=== PATIENT | female | born 1975 | race Two or more races ===

== ENCOUNTER 2020-08-06 10:45 | Outpatient (REF) | payer OTHER, SELFPAY ==
--- NOTE | 2020-08-06 10:54 | EMG_ITS ---
HISTORY OF PRESENT ILLNESS: This is a 44-year-old woman with a 2-year history of numbness and pain in both hands. Prior to that, she has had multiple other complaints of aches and pains in the body and at some point was thought to have fibromyalgia. No list of medications available. PHYSICAL EXAMINATION: On examination, she is alert and oriented with normal intellectual functions. Cranial nerves II through XII are normal. Muscle tone and strength are normal in all 4 extremities. Deep tendon reflexes symmetrical, 2+, plantar response are flexor. No Tinel or Phalen sign. IMPRESSION: Rule out carpal tunnel syndrome. NERVE CONDUCTION EMG STUDY: Normal electrodiagnostic study of both upper extremities with no evidence of carpal tunnel syndrome or nerve entrapment. Normal EMG of the left C5 through T1 innervated muscles. MD CHELSEA Marinelli/DARWIN / [id number]
== END 2020-08-06 10:46 | disposition home or self-care (01) ==
LOC: HO.NEURO 10:45
PROVIDERS: PCP Internal Medicine; Visit Provider Internal Medicine
DX: R20.0 Anesthesia of skin (principal)
CPT/HCPCS: 95860; 95913

== ENCOUNTER 2020-10-07 14:43 | Outpatient (REF) | payer OTHER, SELFPAY ==
--- NOTE | 2020-10-07 16:03 | XR_ITS ---
EXAMINATION: LUMBAR SPINE, CERVICAL SPINE, AND LEFT FOOT. CLINICAL INFORMATION: Pain COMPARISON: None TECHNIQUE: Three-view left foot, 3 view lumbar spine, 2 view cervical spine. FINDINGS: 3 views of the left foot do not demonstrate any evidence of acute fracture or dislocation. Joint spaces are maintained. No erosive changes are appreciated. There is a plantar calcaneal spur. There are 5 rib-bearing lumbar vertebra with partial sacralization of the left side of L5. No acute fracture, spondylolisthesis, or spondylolysis is appreciated. There is some mild disc space narrowing seen L3-S1. There is increased sclerosis consistent with facet arthropathy involving the right L5-S1 facet joint. AP and lateral views of the cervical spine do not demonstrate any evidence of acute fracture. No abnormal prevertebral soft tissue swelling is seen. There is some anterior spurring seen at the C4-C5 level. Disc spaces are maintained. XR/XR foot LT min 3V IMPRESSION: Left calcaneal spur. Partial sacralization left side of L5 without evidence of acute fracture, spondylolisthesis, or spondylolysis. Mild degenerative change at the C4-C5 level.
--- NOTE | 2020-10-07 16:03 | XR_ITS ---
EXAMINATION: LUMBAR SPINE, CERVICAL SPINE, AND LEFT FOOT. CLINICAL INFORMATION: Pain COMPARISON: None TECHNIQUE: Three-view left foot, 3 view lumbar spine, 2 view cervical spine. FINDINGS: 3 views of the left foot do not demonstrate any evidence of acute fracture or dislocation. Joint spaces are maintained. No erosive changes are appreciated. There is a plantar calcaneal spur. There are 5 rib-bearing lumbar vertebra with partial sacralization of the left side of L5. No acute fracture, spondylolisthesis, or spondylolysis is appreciated. There is some mild disc space narrowing seen L3-S1. There is increased sclerosis consistent with facet arthropathy involving the right L5-S1 facet joint. AP and lateral views of the cervical spine do not demonstrate any evidence of acute fracture. No abnormal prevertebral soft tissue swelling is seen. There is some anterior spurring seen at the C4-C5 level. Disc spaces are maintained. XR/XR lumbar spine 2-3V IMPRESSION: Left calcaneal spur. Partial sacralization left side of L5 without evidence of acute fracture, spondylolisthesis, or spondylolysis. Mild degenerative change at the C4-C5 level.
--- NOTE | 2020-10-07 16:03 | XR_ITS ---
EXAMINATION: LUMBAR SPINE, CERVICAL SPINE, AND LEFT FOOT. CLINICAL INFORMATION: Pain COMPARISON: None TECHNIQUE: Three-view left foot, 3 view lumbar spine, 2 view cervical spine. FINDINGS: 3 views of the left foot do not demonstrate any evidence of acute fracture or dislocation. Joint spaces are maintained. No erosive changes are appreciated. There is a plantar calcaneal spur. There are 5 rib-bearing lumbar vertebra with partial sacralization of the left side of L5. No acute fracture, spondylolisthesis, or spondylolysis is appreciated. There is some mild disc space narrowing seen L3-S1. There is increased sclerosis consistent with facet arthropathy involving the right L5-S1 facet joint. AP and lateral views of the cervical spine do not demonstrate any evidence of acute fracture. No abnormal prevertebral soft tissue swelling is seen. There is some anterior spurring seen at the C4-C5 level. Disc spaces are maintained. XR/XR cervical spine 2V IMPRESSION: Left calcaneal spur. Partial sacralization left side of L5 without evidence of acute fracture, spondylolisthesis, or spondylolysis. Mild degenerative change at the C4-C5 level.
[2020-10-07 16:49] LABS: MANUAL DIFF FLAG NO
[2020-10-07 16:54] LABS: Basophils Percent Auto 0.3 % (0-2); Eosinophils Absolute Auto 0.1 X10*3/uL (0.0-0.4); Eosinophils Percent Auto 0.7 % (0-4); Hematocrit 37.4 % (37-47); Hemoglobin 13.2 g/dl (12.0-16.0); Imm Gran Abs Auto 0.02 X10*3/uL (0.00-0.03); Imm Gran Pct Auto 0.2 % (0.0-0.4); Lymphocytes Absolute Auto 3.3 X10*3/uL (1.2-4.9); Mean Corpuscular HGB Conc 35.3 g/dl (31.0-35.0); Mean Corpuscular Hemoglobin 31.3 pg (27.0-33.0); Mean Corpuscular Volume 88.6 fL (80-98); Mean Platelet Volume 9.3 fL (9.4-12.3); Monocytes Absolute Auto 0.4 X10*3/uL (0.1-1.2); Monocytes Percent Auto 4.4 % (2-11); Neutrophils Absolute Auto 5.6 X10*3/uL (2.0-8.3); Neutrophils Percent Auto 59.4 % (45-73); Platelet Count 346 X10*3/uL (160-400); Red Blood Count 4.22 X10*6/uL (4.20-5.50); Red Cell Distribution Width 11.6 % (11.0-16.0); White Blood Count 9.5 X10*3/uL (4.8-10.8)
[2020-10-07 17:53] LABS: Erythrocyte Sedimentation Rate 8 MM/HR (0-20)
[2020-10-07 17:59] LABS: Thyroid Stimulating Hormone 0.82 uIU/mL (0.32-4.0)
[2020-10-07 19:09] LABS: Alanine Aminotransferase 15 U/L (0-31); Albumin Level 4.5 g/dL (3.5-5.0); Alkaline Phosphatase 61 U/L (39-117); Anion Gap 14 (12-20); Aspartate Amino Transferase 18 U/L (5-31); Bilirubin Total 0.3 mg/dL (0.0-1.0); Blood Urea Nitrogen 10 mg/dL (9-16); C Reactive Protein 0.06 mg/dL (< or = 0.50); Calcium 9.3 mg/dL (8.4-10.2); Carbon Dioxide 26 mmol/L (22-29); Chloride 103 mmol/L (96-108); Estimated Glomerular Filt Rate > 60; Glucose Random 74 mg/dL (60-115); Rheumatoid Factor < 15.0 IU/mL (<15.0); Sodium 139 mmol/L (135-145); Total Protein 7.2 g/dL (6.5-8.0)
[2020-10-08 13:07] LABS: Anti Nuclear Antibody Screen NEGATIVE (NEGATIVE)
[2020-10-08 13:33] LABS: Antibody to SS-A Antigen <1.0 NEG AI (<1.0 NEG); Antibody to SS-B Antigen <1.0 NEG AI (<1.0 NEG)
[2020-10-08 15:32] LABS: Cyclic Citrullinated Peptide <16 UNITS
[2020-10-13 14:27] LABS: Vitamin D 25-OH, D2 <4 ng/mL; Vitamin D 25-OH, D3 23 ng/mL; Vitamin D 25-OH, Total 23 ng/mL (30-100)
== END 2020-10-07 14:44 | disposition home or self-care (01) ==
LOC: HO.LAB 14:43
PROVIDERS: PCP Internal Medicine; Visit Provider Student in an Organized Health Care Education/Training Program
DX: M25.50 Pain in unspecified joint (principal)
CPT/HCPCS: 36415; 72040; 72100; 73630; 80053; 82306; 84443; 85025; 85652; 86038; 86039; 86140; 86200; 86235; 86431; 99202

== ENCOUNTER 2020-11-05 07:00 | Outpatient (REF) | payer OTHER, SELFPAY ==
[2020-11-05 07:44] LABS: MANUAL DIFF FLAG NO
[2020-11-05 07:57] LABS: Basophils Percent Auto 0.5 % (0-2); Eosinophils Absolute Auto 0.1 X10*3/uL (0.0-0.4); Eosinophils Percent Auto 1.2 % (0-4); Hematocrit 39.2 % (37-47); Imm Gran Abs Auto 0.02 X10*3/uL (0.00-0.03); Imm Gran Pct Auto 0.3 % (0.0-0.4); Lymphocytes Absolute Auto 2.7 X10*3/uL (1.2-4.9); Lymphocytes Percent Auto 35.5 % (20-40); Mean Corpuscular HGB Conc 33.2 g/dl (31.0-35.0); Mean Corpuscular Hemoglobin 29.9 pg (27.0-33.0); Mean Corpuscular Volume 90.1 fL (80-98); Mean Platelet Volume 9.1 fL (9.4-12.3); Monocytes Absolute Auto 0.4 X10*3/uL (0.1-1.2); Monocytes Percent Auto 5.7 % (2-11); Neutrophils Absolute Auto 4.4 X10*3/uL (2.0-8.3); Neutrophils Percent Auto 56.8 % (45-73); Platelet Count 327 X10*3/uL (160-400); Red Blood Count 4.35 X10*6/uL (4.20-5.50); Red Cell Distribution Width 11.4 % (11.0-16.0); White Blood Count 7.7 X10*3/uL (4.8-10.8)
[2020-11-05 08:19] LABS: Alanine Aminotransferase 20 U/L (0-31); Alkaline Phosphatase 57 U/L (39-117); Anion Gap 12 (12-20); Aspartate Amino Transferase 19 U/L (5-31); Bilirubin Total 0.4 mg/dL (0.0-1.0); Blood Urea Nitrogen 12 mg/dL (9-16); Calcium 9.3 mg/dL (8.4-10.2); Carbon Dioxide 26 mmol/L (22-29); Chloride 105 mmol/L (96-108); Cholesterol 202 mg/dL; Estimated Glomerular Filt Rate > 60; Glucose Fasting 99 mg/dL (60-99); HDL Cholesterol 59 mg/dL; LDL Cholesterol Calculated 125 mg/dl; Potassium 4.5 mmol/l (3.3-5.1); Sodium 138 mmol/L (135-145); Total Protein 6.5 g/dL (6.5-8.0); Triglycerides 90 mg/dL
[2020-11-05 08:38] LABS: TSH reflex Free T4 0.64 mIU/mL (0.32-4.0); Vitamin D 25-OH Total 17.7 ng/mL (>30)
[2020-11-05 09:10] LABS: Erythrocyte Sedimentation Rate 7 MM/HR (0-20)
[2020-11-05 09:14] LABS: Rheumatoid Factor < 15.0 IU/mL (<15.0)
[2020-11-06 06:43] LABS: Lyme Abs Screen <0.90 index
[2020-11-06 14:12] LABS: Anti Nuclear Antibody Screen NEGATIVE (NEGATIVE)
[2020-11-06 14:32] LABS: SM/Ribonucleoprotein Ab <1.0 NEG AI (<1.0 NEG); Smith Protein <1.0 NEG AI (<1.0 NEG)
[2020-11-07 14:32] LABS: Cyclic Citrullinated Peptide <16 UNITS
[2020-11-10 18:07] LABS: Strep DNASE B Antibody <95 U/mL (<301)
== END 2020-11-05 07:01 | disposition home or self-care (01) ==
LOC: HO.LAB 07:00
PROVIDERS: Visit Provider Internal Medicine
DX: M25.50 Pain in unspecified joint (principal); L65.9 Nonscarring hair loss, unspecified; Z79.899 Other long term (current) drug therapy
CPT/HCPCS: 36415; 80053; 80061; 82306; 84443; 85025; 85652; 86038; 86039; 86200; 86215; 86235; 86431; 86618

== ENCOUNTER 2020-11-12 08:07 | Outpatient (REF) | payer OTHER, SELFPAY ==
--- NOTE | 2020-11-12 08:11 | MM_ITS ---
EXAMINATION: MM SCREENING DIGITAL BREAST TOMOSYNTHESIS, BILATERAL CLINICAL INFORMATION: Screening. Asymptomatic. Prior reduction mammoplasty 2009. The lifetime risk of breast cancer based on the Tyrer-Cuzick Model is 7%. COMPARISON: Outside mammography: 01/16/2018, 01/12/2017 ([facility]). TECHNIQUE: Digital breast tomosynthesis is performed in both the craniocaudal and mediolateral oblique views along with computer-aided detection (CAD). Synthesized 2D images are generated from the tomosynthesis. FINDINGS: There are scattered areas of fibroglandular density (ACR BI-RADS breast composition Category b). Parenchymal pattern is similar to prior studies. There are scattered asymmetries consistent with reduction mammoplasty. No developing density or interval mass, architectural abnormality, or abnormal calcifications. No significant changes from prior outside exams. MM/MM tomosynthesis screening BI IMPRESSION: No mammographic evidence of malignancy. ASSESSMENT: BI-RADS 2: Benign RECOMMENDATION: Routine annual mammography screening. This patient's information was entered into a reminder system with a target due date for their next mammogram.
== END 2020-11-12 08:08 | disposition home or self-care (01) ==
LOC: HO.MAMMO 08:07
PROVIDERS: PCP Internal Medicine; Visit Provider Internal Medicine
DX: Z12.31 Encounter for screening mammogram for malignant neoplasm of breast (principal)
CPT/HCPCS: 77063; 77067

== ENCOUNTER 2022-01-13 11:37 | Emergency (ER) | payer OTHER, SELFPAY ==
--- NOTE | ~2022-01-13 | XR_ITS ---
EXAMINATION: XR SHOULDER, RIGHT CLINICAL INFORMATION: Right shoulder pain. No trauma COMPARISON: None TECHNIQUE: AP external rotation, Grashey, scapular Y, and axillary views of the right shoulder. FINDINGS: There is mild reduction in the right AC joint space with inferior spurring. The glenohumeral joint space is normal. No bony erosive changes, acute fracture or dislocation. The soft tissues are normal. XR/XR shoulder RT min 2V IMPRESSION: Mild degenerative changes right AC joint. No acute fracture or dislocation seen
[2022-01-13 11:56] VITALS: BP 159/74; PULSE 73; RESP 17; TEMP 36.3; O2SAT 98; BMI 26.1
--- NOTE | 2022-01-13 12:11 | ED_ITS ---
HPI - Extremity Problem General Chief complaint: Extremity Problem Stated complaint: pain in R arm Time Seen by Provider: 01/13/22 12:05 Source: patient Mode of arrival: ambulatory Limitations: no limitations History of Present Illness HPI Narrative: 46-year-old female with history of polyarthralgia with negative w/u by rheum in past here with reports of acute on chronic right shoulder pain over the last few days unrelieved with home naproxen. Patient is right-handed. 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 She denies any injury or trauma. She denies any radiation of pain. No associated numbness or tingling. She has a history of getting cortisone injections to the shoulder in the past which was helpful. However, she is transitioning to a new primary care doctor and cannot get in to be seen by them until May. Related Data Home Medications Medication Instructions Recorded Confirmed amitriptyline 25 mg tablet 25 mg PO BEDTIME 10/07/20 11/05/20 naproxen sodium 220 mg tablet 220 mg PO BID PRN 10/07/20 11/05/20 (Aleve) Previous Rx's Medication Instructions Recorded ergocalciferol (vitamin D2) 1,250 1,250 mcg PO QWEEK 30 Days #5 cap 11/05/20 mcg (50,000 unit) capsule cyclobenzaprine 10 mg tablet 10 mg PO TID PRN #10 tab 01/13/22 naproxen 500 mg tablet 500 mg PO BID PRN #20 tab 01/13/22 Allergies Allergy/AdvReac Type Severity Reaction Status Date / Time No Known Allergies Allergy Verified 11/05/20 13:44 Review of Systems Review of Systems: Yes all other systems are reviewed and are negative Constitutional: Constitutional: Reports no additional constitutional complaints, Denies body ache(s), Denies chills, Denies fever(s), Denies headache(s) and Denies weakness Eyes: Eyes: Reports no additional eye complaints and Denies change in vision ENT: Reports system reviewed and no additional complaints, except as documented, Denies dizziness, Denies headache(s), Denies nasal congestion, Denies nasal discharge and Denies neck pain Cardiovascular: Cardiovascular: Reports no additional cardiovascular complaints, Denies chest pain, Denies leg edema and Denies dyspnea Respiratory: Respiratory: Reports no additional respiratory complaints, Denies cough and Denies dyspnea Gastrointestinal: Gastrointestinal: Reports no additional gastrointestinal complaints, Denies abdominal pain, Denies diarrhea, Denies nausea and Denies vomiting Genitourinary: Genitourinary: Reports no additional female genitourinary complaints and Denies urinary incontinence Musculoskeletal: Musculoskeletal: Reports no additional musculoskeletal complaints, Denies back pain, Reports arthralgias, Denies joint swelling, Denies neck pain, Denies numbness and Denies tingling Integumentary/Breasts: Skin/Breast: Reports system reviewed and no additional complaints, except as docu and Denies rash Neurologic: Reports system reviewed and no additional complaints, except as documented, Denies Abnormal speech present, Denies dizziness, Denies headache(s), Denies numbness, Denies tingling and Denies weakness PMFSH Past Medical History Attestation statement: The following information was validated with the patient. Source: old records reviewed and nursing notes reviewed Medical History Arthritis Hair loss Hypovitaminosis D Migraines Surgical History History of section Hx of breast reduction, elective Family History Family History Father Stroke Mother Anxiety Family/Other FH: mental illness Social History Social History Alcohol intake: current Alcohol intake frequency: holidays/special occasions only Alcohol type: beer Substance Use Type: Marijuana Advance Directives: No Advance Directives Information Provided: No Physical Exam Vital Signs: Vital Signs: Last Vital Signs Temp 97.4 F 01/13/22 11:56 Pulse 73 01/13/22 11:56 Resp 17 01/13/22 11:56 BP 159/74 H 01/13/22 11:56 Pulse Ox 98 01/13/22 11:56 BMI result Body Mass Index 26.1 Const: General: cooperative, healthy appearing, comfortable and no acute distress Orientation/consciousness: patient oriented x3 Limitations: no limitations HEENT: Head: Yes normal to inspection Ears: hearing grossly normal bilaterally General nose exam: Normal external nose present Face and sinus: Yes normal facial exam Mouth: Normal oral and palatal mucosa present Throat: Yes posterior oropharynx normal Eyes: General: appearance normal, both eyes and all related structures Pupils: Equal, round and reactive pupils present Neck: Neck: Yes normal visual inspection Chest: Chest palpation & inspection: normal inspection of the chest Resp: Effort & Inspection: normal respiratory effort Auscultation: clear to auscultation bilaterally Cardio: Rate: regular rate Rhythm: regular rhythm Peripheral pulses: Peripheral pulses 2+ throughout GI: Inspection: Yes normal to inspection Palpation (GI): Soft to palpation and nontender Auscultation: normal bowel sounds Back/Spine/Pelvis: Thoracic/Lumbar Spine: thoracic and lumbar spine normal to inspection Skin: General skin exam: no rashes or lesions noted Neuro: General: patient oriented x3, no focal motor deficits and normal sensation to monofilament Cranial nerves: Yes Equal, round and reactive pupils present Cognition (Neuro): normal cognition Speech: No Abnormal speech present Gait exam (Neuro): Normal gait present Motor exam (neuro): 5/5 motor strength present throughout Extrem: Other: Tenderness to the anterior and proximal humerus which is worsened with abduction of the extremity. Normal sensation. Normal distal pulse. General: Yes normal to inspection Course Course Course Narrative: [age] year old female here with acute on chronic right shoulder pain unrelieved with home naproxen. Will obtain x-rays, provide analgesia 1300- X-rays show Mild degenerative changes right AC joint. No acute fracture or dislocation seen Recommend patient continue NSAID, will add low dose muscle relaxant. Patient seeking cortisone injection as this has been helpful in the past. Explained that we do not do this in the emergency department. Will provide referral to Orthopedics although patient may require a prior auth from her primary care. Reviewed worrisome signs and symptoms of when to return to the emergency department. Comfortable discharge home. MDM - Extremity (Nontraumatic) MDM Narrative Medical decision making narrative: Arthritis, sprain, strain Medical Records Attestation: I reviewed the patient's medical records. Lab Data Attestation: I reviewed the patient's lab results. Imaging Data shoulder xray: Attestation: I personally reviewed and interpreted this imaging study as follows: Radiologist's impression: [address] [address] XRay Report Signed Patient: Lance Acosta MR#: [id number] : 1975 Acct:[id number] Age/Sex: 46 / F ADM Date: 01/13/22 Loc: HO.ED Attending Dr: Ordering Physician: Alivia Caal NP Date of Service: 01/13/22 Procedure(s): XR shoulder RT min 2V Accession Number(s): [id number] cc: Alivia Caal NP~ EXAMINATION: XR SHOULDER, RIGHT CLINICAL INFORMATION: Right shoulder pain. No trauma? COMPARISON: None? TECHNIQUE: AP external rotation, Grashey, scapular Y, and axillary views of the right shoulder. FINDINGS: There is mild reduction in the right AC joint space with inferior spurring. The glenohumeral joint space is normal. No bony erosive changes, acute fracture or dislocation. The soft tissues are normal. XR/XR shoulder RT min 2V IMPRESSION: Mild degenerative changes right AC joint. No acute fracture or dislocation seen Discharge Plan Discharge Clinical Impression: Osteoarthritis Patient Disposition: Home, Self-Care Instructions: Osteoarthritis (DC) Additional Instructions: Heat or ice Gentle stretching Continue naproxen Prescriptions: New cyclobenzaprine 10 mg tablet 10 mg PO TID PRN (Reason: muscle spasm) Qty: 10 0RF naproxen 500 mg tablet 500 mg PO BID PRN (Reason: pain) Qty: 20 0RF No Action ergocalciferol (vitamin D2) 1,250 mcg (50,000 unit) capsule 1,250 mcg PO QWEEK 30 Days Qty: 5 3RF amitriptyline 25 mg tablet 25 mg PO BEDTIME 0RF naproxen sodium [Aleve] 220 mg tablet 220 mg PO BID PRN0RF Referrals: Patti Toscano MD [Physician] - 1 week Stand Alone Forms: Work/School Release
[2022-01-13] MEDS: Ketorolac Tromethamine 60 MG/2 ML VIAL IM (12:37)
== END 2022-01-13 13:15 | disposition home or self-care (01) ==
PROVIDERS: Emergency Provider Emergency Medicine; PCP Internal Medicine
DX: M19.011 Primary osteoarthritis, right shoulder (principal); M25.511 Pain in right shoulder; Z79.899 Other long term (current) drug therapy
CPT/HCPCS: 73030; 96372; 99284; J1885

== ENCOUNTER 2022-07-17 09:09 | Emergency (ER) | payer OTHER, SELFPAY ==
[2022-07-17 10:07] VITALS: BP 133/60; PULSE 83; RESP 16; TEMP 36.5; O2SAT 99; BMI 25.6
--- NOTE | 2022-07-17 10:10 | ED_ITS ---
HPI - Back Pain/Injury General Chief Complaint: Back Pain/Injury Stated Complaint: back pain Time Seen by Provider: 07/17/22 10:10 Source: patient Mode of arrival: ambulatory Limitations: no limitations History of Present Illness HPI Narrative: 46 yo female with history of polyarthralgia & sciatica who presents to the ER for evaluation of lower back pain that radiates down her LLE that started 3 days ago. She reports history of similar episodes. She states when this usually flares up she takes Naprosyn and Flexeril. The Naprosyn has been upsetting her stomach and she has not been able to take it. She has no Flexeril at home. 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 She reports the back pain is in her lower back, radiates into her left buttock, down her left leg. It is worse with ambulation and palpation of her back. She denies any urinary incontinence, bowel incontinence, saddle paresthesias, no lower extremity weakness, numbness, tingling. She does report severe pain. MD elicited complaint: back pain Pertinent past history: prior back pain Onset (ago): day(s) (3) Timing: progressively worsening Severity: severe Similar Symptoms Previously: Yes Quality: sharp, aching and spasming Location: right lower back and left lower back Radiation: buttocks and left leg below the knee Exacerbating factors: movement and walking Relieving factors: immobilization and medication Context: unknown Associated symptoms: denies other symptoms Related Data Home Medications Medication Instructions Recorded Confirmed amitriptyline 25 mg tablet 25 mg PO BEDTIME 10/07/20 11/05/20 naproxen sodium 220 mg tablet 220 mg PO BID PRN 10/07/20 11/05/20 (Aleve) Previous Rx's Medication Instructions Recorded ergocalciferol (vitamin D2) 1,250 1,250 mcg PO QWEEK 30 days #5 caps 11/05/20 mcg (50,000 unit) capsule cyclobenzaprine 10 mg tablet 10 mg PO TID PRN muscle spasm #10 01/13/22 tabs naproxen 500 mg tablet 500 mg PO BID PRN pain #20 tabs 01/13/22 cyclobenzaprine 10 mg tablet 10 mg PO TID PRN muscle spasm #14 07/17/22 tabs ibuprofen 600 mg tablet 600 mg PO Q8H PRN pain #14 tabs 07/17/22 prednisone 20 mg tablet 40 mg PO DAILY #10 tabs 07/17/22 Allergies Allergy/AdvReac Type Severity Reaction Status Date / Time No Known Allergies Allergy Verified 11/05/20 13:44 Review of Systems Review of Systems: Constitutional: No Fever, No Chills Cardiovascular: No Chest Pain, No SOB Respiratory: No Cough, No Sputum Gastrointestinal: No Nausea, No Vomiting, No Diarrhea, No abdominal Pain Genitourinary: No Dysuria, No Urinary Frequency, No Hematuria, No urinary i ncontinence Musculoskeletal: + joint pain, +Myalgias Skin: No Skin Lesions, No rash Neuro: No Weakness, No Numbness, No Dizziness, No Headache Psych: No Anxiety/Panic, No Depression Heme/Lymph: No Bruising, No Lymphadenopathy PMFSH Past Medical History Medical History Arthritis Hair loss Hypovitaminosis D Migraines Surgical History History of section Hx of breast reduction, elective Family History Family History Father Stroke Mother Anxiety Family/Other FH: mental illness Social History Social History Alcohol intake: current Alcohol intake frequency: holidays/special occasions only Alcohol type: beer Substance Use Type: Marijuana Advance Directives: No Advance Directives Information Provided: No Physical Exam Vital Signs: Vital Signs: Last Vital Signs Temp 97.7 F 07/17/22 10:07 Pulse 83 07/17/22 10:07 Resp 16 07/17/22 10:07 BP 133/60 07/17/22 10:07 Pulse Ox 99 07/17/22 10:07 O2 Del Method 07/17/22 10:07 BMI result Body Mass Index 25.6 Appearance: Alert. Oriented X3. No acute distress. HEENT: normal inspection CVS: Normal heart rate and rhythm. Pulses normal. Respiratory: No respiratory distress. Skin: Skin warm and dry. Normal skin color. Normal skin turgor. No rashes. Back: tenderness along the entire lumbar area, more on the left. +straight leg raise test. Extremities: normal inspection x4 Neuro: Oriented X 3. No motor deficit. No sensory deficit. ambulates with steady gait, slight limp on the left Course Course Course Narrative: 46-year-old female with history of polyarthralgia and sciatica presents to the ER for evaluation of sciatica for the last 3 days. She denies any red flag symptoms of LBP. She reports good effect with Flexeril. She is unable to tolerate Naprosyn due to GI upset, will give a trial of ibuprofen, advised to take with food. Will give a dose of IM Toradol here. Will also start her on prednisone given she is not diabetic and she has also responded well to this in the past. She will follow-up with her primary care doctor next week. Work note provided per request. Stable for DC home. Discharge Plan Discharge Clinical Impression: Sciatica Patient Disposition: Home, Self-Care Instructions: Sciatica (ED) Additional Instructions: No bending, lifting or twisting. Use ice several times per day for 20 minutes at a time for the next 48 hours and then change to heat. Take medications as prescribed to help with pain and discomfort. Follow up with your Primary Care Doctor this week. If your pain worsens, if you develop new numbness, tingling, weakness, loss of function or incontinence call 911 or come back to the ER right away for evaluation. Prescriptions: New cyclobenzaprine 10 mg tablet 10 mg PO TID PRN (Reason: muscle spasm) Qty: 14 0RF ibuprofen 600 mg tablet 600 mg PO Q8H PRN (Reason: pain) Qty: 14 0RF prednisone 20 mg tablet 40 mg PO DAILY Qty: 10 0RF No Action cyclobenzaprine 10 mg tablet 10 mg PO TID PRN (Reason: muscle spasm) Qty: 10 0RF naproxen 500 mg tablet 500 mg PO BID PRN (Reason: pain) Qty: 20 0RF ergocalciferol (vitamin D2) 1,250 mcg (50,000 unit) capsule 1,250 mcg PO QWEEK 30 Days Qty: 5 3RF amitriptyline 25 mg tablet 25 mg PO BEDTIME naproxen sodium [Aleve] 220 mg tablet 220 mg PO BID PRN Referrals: Suki Teresa MD [Primary Care Provider] - (sciatica) Stand Alone Forms: Work/School Release Interventions: ED Discharge Assessment Last Done: 07/17/22 10:57
[2022-07-17] MEDS: Ketorolac Tromethamine 30 MG/ML VIAL IM (10:33)
[2022-07-17] MEDS: Acetaminophen 325 MG TABLET 975 MG PO (10:33)
== END 2022-07-17 10:58 | disposition home or self-care (01) ==
PROVIDERS: Emergency Provider Emergency Medicine; PCP Internal Medicine
DX: M54.42 Lumbago with sciatica, left side (principal)
CPT/HCPCS: 96372; 99283; 99284; J1885

== ENCOUNTER 2023-05-14 11:29 | Emergency (ER) | payer OTHER, SELFPAY ==
--- NOTE | ~2023-05-14 | US_ITS ---
EXAMINATION: US VENOUS ULTRASOUND WITH DOPPLER LOWER EXTREMITY, LEFT CLINICAL INFORMATION: Left calf pain COMPARISON: None available. TECHNIQUE: Ultrasound of the deep veins is performed from the hip to the calf with compression sonography and color and pulse Doppler assessment. Spectral analysis with color-flow imaging is performed. FINDINGS: There is normal venous compression and respiratory variation and augmented flow. The visualized common femoral vein, superficial femoral vein, profunda femoral vein, popliteal vein, and the trifurcation region shows no evidence of deep venous thrombosis. There is no significant popliteal fossa cyst. If the patient's symptoms persist, followup ultrasound in 5 days 7 days might be of value to exclude proximal propagation from a non-visualized calf vein. US/US venous duplex LE LT IMPRESSION: No DVT demonstrated in the left lower extremity.
--- NOTE | ~2023-05-14 | XR_ITS ---
EXAMINATION: XR KNEE, LEFT CLINICAL INFORMATION: Pain COMPARISON: None available. TECHNIQUE: Four views of the left knee. FINDINGS: No fracture or joint effusion. Alignment is anatomic. Joint spaces are maintained. No abnormal soft tissue calcification. XR/XR knee LT 3V IMPRESSION: Normal left knee.
[2023-05-14 11:54] VITALS: BP 129/69; PULSE 79; RESP 12; TEMP 37.1; O2SAT 99; BMI 27.0
--- NOTE | 2023-05-14 11:54 | ED_ITS ---
HPI - General Adult General Chief complaint: General Medical Stated complaint: l knee pain Time Seen by Provider: 05/14/23 11:39 Source: patient Mode of arrival: ambulatory Limitations: no limitations History of Present Illness HPI narrative: Patient is a 47-year-old female with history of arthritis, migraines presenting emergency department with 3 days of left knee pain which is now radiating down anterior left leg. She also complains of left calf pain, worse with ambulation. 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 Has taken muscle relaxers at home with little relief. Denies any numbness or tingling to her lower extremity. Denies any recent falls or other trauma. Denies fevers. Denies chest pain or shortness of breath. Denies personal or family history of blood clots. MD complaint: Left leg pain Onset (ago): day(s) Location: lower extremity Radiation: distal Severity scale (1-10): 7 Quality: burning Pain Consistency: constant Relieving factors: rest Exacerbating factors: movement Associated symptoms: denies other symptoms Treatments prior to arrival: other (Muscle relaxers) Related Data Home Medications Medication Instructions Recorded Confirmed amitriptyline 25 mg tablet 25 mg PO BEDTIME 10/07/20 11/05/20 naproxen sodium 220 mg tablet 220 mg PO BID PRN 10/07/20 11/05/20 (Aleve) Previous Rx's Medication Instructions Recorded ergocalciferol (vitamin D2) 1,250 1,250 mcg PO QWEEK 30 days #5 caps 11/05/20 mcg (50,000 unit) capsule cyclobenzaprine 10 mg tablet 10 mg PO TID PRN muscle spasm #10 01/13/22 tabs naproxen 500 mg tablet 500 mg PO BID PRN pain #20 tabs 01/13/22 cyclobenzaprine 10 mg tablet 10 mg PO TID PRN muscle spasm #14 07/17/22 tabs ibuprofen 600 mg tablet 600 mg PO Q8H PRN pain #14 tabs 07/17/22 prednisone 20 mg tablet 40 mg PO DAILY #10 tabs 07/17/22 ibuprofen 600 mg tablet 600 mg PO Q8H PRN pain #14 tabs 05/14/23 lidocaine 5 % topical patch 1 patch topical DAILY #15 ea 05/14/23 Allergies Allergy/AdvReac Type Severity Reaction Status Date / Time No Known Allergies Allergy Verified 11/05/20 13:44 Review of Systems Review of Systems: As per HPI. Yes all other systems are reviewed and are negative Constitutional: Constitutional: Reports as per HPI [facility] Past Medical History Medical History Arthritis Hair loss Hypovitaminosis D Migraines Surgical History History of section Hx of breast reduction, elective Family History Family History Father Stroke Mother Anxiety Family/Other FH: mental illness Social History Social History Alcohol intake: current Alcohol intake frequency: holidays/special occasions only Alcohol type: beer Smoked in Last 30 Days: No Use of substances other than those prescribed or required for medical reasons: Yes Substance Use Type: Marijuana Substance Use Frequency: Chronic Longstanding Last Used Substance: Just Prior to Admission Advance Directives: No Advance Directives Information Provided: Yes Patient : No Physical Exam ED Vital Signs: Vital Signs - 24 hr 05/14/23 11:54 Temperature 98.8 F Pulse Rate 79 Respiratory Rate 12 Blood Pressure 129/69 Pulse Oximetry 99 Oxygen Delivery Method Room Air BMI result Body Mass Index 27.0 Vital signs have been reviewed and appear to be correct. Blood pressure normal. Heart rate normal. Respiratory rate normal. Temperature normal. Oxygen saturation normal. Const General: cooperative, healthy appearing and no acute distress Orientation/consciousness: oriented to person, oriented to place, oriented to time and patient oriented x3 Limitations: no limitations [facility] Head: Yes normocephalic and Yes atraumatic Ears: external ears normal General nose exam: Normal external nose present Face and sinus: Yes face symmetric Mouth: oropharynx normal and moist mucous membranes Throat: Yes uvula midline Eyes Pupils: Equal, round and reactive pupils present Neck Neck: Yes normal visual inspection and Yes supple Resp Effort & Inspection: normal respiratory effort and able to speak in complete sentences Auscultation: clear to auscultation bilaterally Cardio Rate: regular rate Rhythm: regular rhythm Heart sounds: S1 normal heart sound present and S2 normal heart sound present GI Palpation (GI): Soft to palpation and nontender Auscultation: normoactive bowel sounds General: Yes no CVA tenderness Back/Spine/Pelvis Back: no CVA tenderness Skin General skin exam: elasticity normal and turgor normal Neuro General: oriented to person, oriented to place, oriented to time, patient oriented x3, moves all extremities, no focal motor deficits and CN's II-XI intact bilaterally Cranial nerves: Yes Equal, round and reactive pupils present Cognition (Neuro): normal cognition Extrem General: Yes full ROM, Yes no pedal edema and Yes no calf tenderness Left lower extremity: normal to inspection, full ROM, knee Details: normal to inspection, tenderness Location: of the popliteal fossa and of the infrapatellar area and normal ROM; no swelling, lower leg Details: normal to inspection and tenderness Location: of the posterior calf; no erythema and no localized swelling and foot Details: normal capillary refill and vascular exam Details: dorsalis pedis pulse present and posterior tibial pulse present Psych Mental Status: mental status grossly normal Affect: normal affect Thought process: Normal thought process present Medications Administered Discontinued Medications Generic Name Dose Route Start Last Admin Trade Name Bernardoq PRN Reason Stop Dose Admin Ketorolac Tromethamine 30 mg 05/14/23 11:57 05/14/23 12:09 Ketorolac Tromethamine 30 Mg/Ml Vial IM 05/14/23 11:58 30 mg ONCE ONE Administration Medical Decision Making Medical Decision Making [facility] Narrative: Patient is a 47-year-old female with history of arthritis, migraines presenting emergency department with 3 days of left knee pain which is now radiating down left leg. On exam patient is awake, A+Ox3, VS WNL, afebrile, normal neurological exam without focal deficits, full ROM to left knee, no swelling, crepitus, erythema, warmth or ecchymosis, mild tenderness to left anterior lower leg, 2+ DP and PT pulses, DTRs2+ throughout, left calf tenderness. Given reported symptoms and physical exam findings, initial differential includes DVT, knee arthritis, muscle strain. Less likely fracture as patient denies fall or other trauma. X-ray notable for no fracture or degenerative changes to left knee. U/S negative for DVT. My interpretation is in agreement with the radiologist's interpretation. Feel patient is stable for discharge home with ortho follow up. Will prescribe 600mg ibuprofen as well as lidocaine patches. Advised patient to apply ice for 10-15 minutes at a time several times daily, elevate leg while at rest. Return precautions discussed at bedside. Instructed patient to follow-up with PCP as well. All results discussed and all questions answered, patient verbalized understanding of and agreement plan. Differential Diagnosis Differential Diagnoses: The differential diagnosis associated with the presentation includes As per MDM. Independent Interpretation I performed an independent interpretation of an: Plain X-Ray and Ultrasound Interpretation: No LLE DVT, no fracture or degenerative changes to left knee. Radiology Impression Discussion of test interpretation with radiology: I have reviewed the radiologist's reading. Radiologist Impression: US/US venous duplex LE LT IMPRESSION: No DVT demonstrated in the left lower extremity. FINDINGS: No fracture or joint effusion. Alignment is anatomic. Joint spaces are maintained. No abnormal soft tissue calcification.? XR/XR knee LT 3V IMPRESSION: Normal left knee. External Record Review External record reviewed: Inpatient record, Office record and Outpatient record Prescription Management I considered prescription management with: Pain Medication Discharge Plan Discharge Clinical Impression: Knee pain, left, Strain of left calf muscle Patient Disposition: Home, Self-Care Instructions: Knee Pain (ED) Additional Instructions: You have been evaluated in the emergency department today for left knee and calf pain. Your evaluation did not find evidence of medical conditions requiring emergent intervention at this time. Please rest, ice, and elevate your leg, and resume normal activities as tolerated. We recommend you take 600mg ibuprofen every 6 hours or 650mg Tylenol every 6 hours as needed for pain. If needed you can alternate these medications as they take 1 medication every 3 hours. For instance at noon take ibuprofen, then at 3:00 p.m. take Tylenol, then at 6:00 p.m. take ibuprofen. You are also being prescribed topical lidocaine patches which you can wear for up to 12 hours in a 24 hour period. You are being referred to Orthopedics, please follow-up with them for ongoing symptoms. Please schedule an appointment for follow-up with your primary care provider this week. Return to the emergency department if you experience worsening pain, numbness, tingling, change of color in your leg or foot, or any other concerning symptoms. Prescriptions: New ibuprofen 600 mg tablet 600 mg PO Q8H PRN (Reason: pain) Qty: 14 0RF lidocaine 5 % adhesive patch,medicated 1 patch topical DAILY Qty: 15 0RF Rx Instructions: leave on most painful area for up to 12 hrs No Action cyclobenzaprine 10 mg tablet 10 mg PO TID PRN (Reason: muscle spasm) Qty: 10 0RF naproxen 500 mg tablet 500 mg PO BID PRN (Reason: pain) Qty: 20 0RF cyclobenzaprine 10 mg tablet 10 mg PO TID PRN (Reason: muscle spasm) Qty: 14 0RF ibuprofen 600 mg tablet 600 mg PO Q8H PRN (Reason: pain) Qty: 14 0RF prednisone 20 mg tablet 40 mg PO DAILY Qty: 10 0RF ergocalciferol (vitamin D2) 1,250 mcg (50,000 unit) capsule 1,250 mcg PO QWEEK 30 Days Qty: 5 3RF amitriptyline 25 mg tablet 25 mg PO BEDTIME naproxen sodium [Aleve] 220 mg tablet 220 mg PO BID PRN Referrals: [facility] Orthopedic Surgeons [Provider Group]
[2023-05-14] MEDS: Ketorolac Tromethamine 30 MG/ML VIAL IM (12:09)
== END 2023-05-14 14:38 | disposition home or self-care (01) ==
PROVIDERS: Emergency Provider Emergency Medicine; PCP Internal Medicine
DX: S86.912A Strain of unspecified muscle(s) and tendon(s) at lower leg level, left leg, initial encounter (principal); X58.XXXA Exposure to other specified factors, initial encounter; Y93.9 Activity, unspecified; Y92.9 Unspecified place or not applicable; Y99.9 Unspecified external cause status; M79.605 Pain in left leg; M25.562 Pain in left knee
CPT/HCPCS: 73562; 93971; 96372; 99284; J1885

== ENCOUNTER 2023-07-15 07:17 | Outpatient (REF) | payer OTHER, SELFPAY ==
--- NOTE | ~2023-07-15 | XR_ITS ---
EXAMINATION: XR KNEE AP STANDING Patella view left knee CLINICAL INFORMATION: Pain in knee. COMPARISON: X-ray of the left knee April 2023 TECHNIQUE: AP bilateral standing view of the knees was obtained. Left knee patella view FINDINGS: Left knee: The bone and joints appear normal. Surrounding soft tissues normal. Cannot assess for joint effusion on these limited views Right knee limited AP upright: The visualized bone and soft tissues are normal. Cannot assess patellofemoral joint and cannot assess for joint effusion XR/XR knee standing BI IMPRESSION: LEFT KNEE Limited: Normal. RIGHT KNEE limited: Normal
--- NOTE | ~2023-07-15 | XR_ITS ---
EXAMINATION: XR KNEE AP STANDING Patella view left knee CLINICAL INFORMATION: Pain in knee. COMPARISON: X-ray of the left knee April 2023 TECHNIQUE: AP bilateral standing view of the knees was obtained. Left knee patella view FINDINGS: Left knee: The bone and joints appear normal. Surrounding soft tissues normal. Cannot assess for joint effusion on these limited views Right knee limited AP upright: The visualized bone and soft tissues are normal. Cannot assess patellofemoral joint and cannot assess for joint effusion XR/XR knee LT 1V IMPRESSION: LEFT KNEE Limited: Normal. RIGHT KNEE limited: Normal
== END 2023-07-15 07:18 | disposition home or self-care (01) ==
LOC: HO.HOSX 07:17
PROVIDERS: Visit Provider Physician Assistant
DX: M22.2X2 Patellofemoral disorders, left knee (principal); M54.16 Radiculopathy, lumbar region
CPT/HCPCS: 73560; 73565

== ENCOUNTER 2023-07-15 07:59 | Outpatient (AMB) | payer OTHER, SELFPAY ==
--- NOTE | 2023-07-15 08:08 | A.OFFVIS_ITS ---
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 No injury she can recall. Pain is mainly by below her knee cap, pain is random, feels a burning sensation when walking and has swelling behind her knee. Also has radiating sharp pains down her lazar. Patient states she has tried compression socks, has purchased a knee brace and topical OTC pain cream, along with tylenol with very little relief. No hx of knee injection. 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 The patient presented to the ED on 05/14/2023 status post 3 days of left knee pain radiating to her anterior left leg. X-rays and ultrasound were obtained. In the office today (07/15/2023) the patient reports 4 months of left knee pain. She does not recall any injury. She claims her pain is mainly below her left knee cap. She states the pain is random with a burning sensation when she ambulates. She confirms edema behind the knee. She reports a radiating sharp pain down to her lazar. She confirms the use of compression socks, use of an OTC knee brace, OTC topical pain cream, and Tylenol with very little relief. She denies a history of cortisone injections. 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 No ecchymosis, erythema, or edema. No tenderness to palpation medial joint line. Hypersensitivity lateral joint line and lateral aspect of the patella. Full knee ROM. Negative Stef's. Negative anterior drawer. NVI. Assessment & Plan Assessment & Plan (1) Patellofemoral syndrome, left: Code(s): M22.2X2 - Patellofemoral disorders, left knee (2) Lumbar radiculopathy: Code(s): M54.16 - Radiculopathy, lumbar region Plan Ms. Acosta is a 47-year-old female, who is Pakistani speaking, presents in the office today, as a new patient, for an evaluation of left knee pain. The patient presented to the ED on 05/14/2023 status post 3 days of left knee pain radiating to her anterior left leg. X-rays and ultrasound were obtained. In the office today (07/15/2023) the patient reports 4 months of left knee pain. She does not recall any injury. She claims her pain is mainly below her left knee cap. She states the pain is random with a burning sensation when she ambulates. She confirms edema behind the knee. She reports a radiating sharp pain down to her lazar. She confirms the use of compression socks, use of an OTC knee brace, OTC topical pain cream, and Tylenol with very little relief. She denies a history of cortisone injections. 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 I discussed the role of a cortisone injection. However the patient states she has had cortisone injections in her hands and feel this just masked the symptoms, therefore, she would like to defer at this time. She was given a true- pull knee brace, off the shelf, while in the office today. She was also given a referral to Pain Management for further evaluation and treatment of her lower back. Follow up will be PRN, or sooner if needed. X-rays of the left knee obtained while in the office today and reviewed by me, Leeann Rolon PA-C, revealed no acute fractures, or dislocation. X-rays of the left knee, obtained on 05/14/2023, revealed: No acute fractures or dislocation. Ultrasound of the left lower extremity, obtained on 05/14/2023, revealed: No DVT demonstrated in the left lower extremity. Orders: Orders XR knee LT 1V Today M25.569 - Pain in unspecified knee XR knee standing BI Today M25.569 - Pain in unspecified knee Referrals Pain Management Referral M54.16 - Radiculopathy, lumbar region Patient Instructions: Scribed for Leeann Rolon PA-C by Linette Gonzáles medical doctor md, on 07/15/2023 at 8:01 am, EST. Coding Level of Care Code New Pt Level 4 (29313) Diagnoses Patellofemoral syndrome, left M22.2X2 Lumbar radiculopathy M54.16
== END 2023-07-15 08:48 | disposition home or self-care (01) ==
PROVIDERS: PCP Internal Medicine; Visit Provider Physician Assistant
DX: M22.2X2 Patellofemoral disorders, left knee (principal); M54.16 Radiculopathy, lumbar region
CPT/HCPCS: 99203

== ENCOUNTER 2023-07-29 09:40 | Outpatient (AMB) | payer OTHER, SELFPAY ==
[2023-07-29 09:48] VITALS: BP 118/62; TEMP 36.6; BMI 27.0
--- NOTE | 2023-07-29 09:48 | MHC.OFFVIS ---
Intake Vital Signs 07/29/23 09:48 Height 5 ft Weight 138 lb 0.15 oz BMI 27.0 BP 118/62 Blood Pressure Location Rt brachial Position Sitting Temp 97.8 F Temp Source Skin Intake Visit Reasons: joint pain Intake Note: Pt seen today for joint pain. Last saw Lisa in 2020, having a lot of the same pains. Today she c/o burning left knee pain that radiates down to the ankle, interfering with ADL's; right hand/wrist pain. Restaurant And Bar Manager Required: Yes Restaurant And Bar Manager Name: Natalie [phone] Accompanied by: Self / Same As Patient Allergies No Known Allergies Allergy (Verified 07/29/23 09:50) Medication List - Last Reconciled 07/29/23 by Paz Caban MD cyclobenzaprine 10 mg PO TID PRN ibuprofen 600 mg PO Q8H PRN lidocaine 5% 1 patch topical DAILY HPI HPI Comments History of Present Illness Details This is a 47-year-old female who presents for evaluation of multiple joint pain. She was evaluated by Dr. Gonzalez in 2020 and comprehensive serology was unremarkable, no evidence of foreign autoimmune rheumatic disease was found. Patient continues to have the same pain. 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 Recently she was evaluated by Orthopedics and prescribed knee brace for her left knee pain. She continues to have pain in her hands, wrists, ankles, knees. 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 Review of Systems Musc Reports arthralgias, Reports joint swelling, Reports limited range of motion and Reports stiffness Physical Exam Vital Signs: Last Vital Signs Temp 97.8 F 07/29/23 09:48 BP 118/62 07/29/23 09:48 BMI result Body Mass Index 27.0 Const General: cooperative, healthy appearing and comfortable Nutritional Appearance: average body habitus Orientation/consciousness: patient oriented x3 Limitations: no limitations HEENT Head: Yes normocephalic and Yes atraumatic Mouth: moist mucous membranes Resp Effort & Inspection: normal respiratory effort and able to speak in complete sentences Auscultation: clear to auscultation bilaterally Cardio Rate: regular rate Rhythm: regular rhythm GI Inspection: No distended Palpation (GI): Soft to palpation and nontender Skin General skin exam: no rashes or lesions noted Neuro General: patient oriented x3 Extrem Other: Osteoarthritic changes of both hands with no active synovitis Bilateral 1st CMC joint tenderness Swelling on the volar aspect of the right wrist, minimally tender to palpation Normal nailfold capillaroscopy Results Reviewed Results Reviewed: Laboratory Tests 10/07/20 10/07/20 10/07/20 16:15 16:15 16:15 WBC Hgb Plt Count ESR Creatinine AST ALT C-Reactive Protein 0.06 25-OH Vitamin D Total Rheumatoid Factor Cycl Citrul Peptide IgG <16 IBIS Screen NEGATIVE SS-A/Ro Antibody SS-B/La Antibody 10/07/20 11/05/20 11/05/20 16:15 07:29 07:29 WBC 7.7 Hgb 13.0 Plt Count 327 ESR Creatinine 0.70 AST 19 ALT 20 C-Reactive Protein 25-OH Vitamin D Total 17.7 Rheumatoid Factor < 15.0 Cycl Citrul Peptide IgG IBIS Screen SS-A/Ro Antibody <1.0 NEG SS-B/La Antibody <1.0 NEG 11/05/20 07:29 WBC Hgb Plt Count ESR 7 Creatinine AST ALT C-Reactive Protein 25-OH Vitamin D Total Rheumatoid Factor Cycl Citrul Peptide IgG IBIS Screen SS-A/Ro Antibody SS-B/La Antibody Assessment & Plan Assessment & Plan (1) Osteoarthritis of right thumb: Code(s): M18.11 - Unilateral primary osteoarthritis of first carpometacarpal joint, right hand Plan: This is a 47-year-old female who presents for evaluation of polyarthralgia. She was previously evaluated by Dr. Gonzalez in 2020 and no evidence for an autoimmune rheumatic disease was found. Comprehensive serology and inflammatory markers in 2020 was negative/normal. Clinical picture consistent with generalized osteoarthritis. Most bothersome is bilateral 1st CMC joint arthritis especially on the right. I educated patient about the condition. Prescribed a thumb spica splint. I suggested Tylenol Arthritis and Voltaren gel, can use NSAIDs sparingly as needed for joint pain (2) Ganglion cyst of volar aspect of right wrist: Code(s): M67.431 - Ganglion, right wrist Plan: Referred to Hand surgery Plan I spent 26 minutes reviewing patient's chart, evaluating patient, ordering diagnostic workup, counseling patient and documenting in the chart Orders: Referrals Hand Surgery Referral M67.431 - Ganglion, right wrist, M67.432 - Ganglion, left wrist Medications: New [thumb spica splint] As directed 1 ea 0RF M18.11 - Unilateral primary osteoarthritis of first carpometacarpal joint, right hand Coding Level of Care Code Est Pt Level 4 (87793) Diagnoses Osteoarthritis of right thumb M18.11 Ganglion cyst of volar aspect of right wrist M67.431
== END 2023-07-29 10:13 | disposition home or self-care (01) ==
PROVIDERS: PCP Internal Medicine; Visit Provider Student in an Organized Health Care Education/Training Program
DX: M18.11 Unilateral primary osteoarthritis of first carpometacarpal joint, right hand (principal); M67.431 Ganglion, right wrist
CPT/HCPCS: 99214

== ENCOUNTER → 2023-07-29 09:40 | Outpatient (BNVA) | payer OTHER, SELFPAY | PROVIDERS: PCP Internal Medicine; Visit Provider Student in an Organized Health Care Education/Training Program ==

== ENCOUNTER 2023-07-30 08:17 | Emergency (ER) | payer OTHER, SELFPAY ==
[2023-07-30 08:35] VITALS: BP 124/63; PULSE 83; RESP 19; TEMP 36.1; O2SAT 97; BMI 26.9
--- NOTE | 2023-07-30 09:28 | ED.BACK ---
HPI - Back Pain/Injury General Chief Complaint: Back Pain/Injury Stated Complaint: pinched nerve in back? 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 Pain radiates to both her thigh. no associated weakness, numbness, tingling of the extremities. No bowel or bladder incontinence. No fevers or chills. No numbness in the groin. Patient took 1 dose of Flexeril last evening which did not seem to help her pain. She has not tried any additional [id number] medications. Related Data Previous Rx's Medication Instructions Recorded cyclobenzaprine 10 mg tablet 10 mg PO TID PRN muscle spasm #10 01/13/22 tabs ibuprofen 600 mg tablet 600 mg PO Q8H PRN pain #14 tabs 05/14/23 lidocaine 5 % topical patch 1 patch topical DAILY #15 ea 05/14/23 thumb spica splint #1 ea 07/29/23 cyclobenzaprine 10 mg tablet 10 mg PO TID PRN muscle spasm #15 07/30/23 tabs lidocaine 5 % topical patch 1 patch topical DAILY #15 ea 07/30/23 (Lidoderm) Allergies Allergy/AdvReac Type Severity Reaction Status Date / Time No Known Allergies Allergy Verified 07/30/23 08:35 Review of Systems Review of Systems: Yes all other systems are reviewed and are negative Constitutional: Constitutional: Reports no additional constitutional complaints, Denies body ache(s), Denies chills, Denies fever(s), Denies headache(s) and Denies weakness Eyes: Eyes: Reports no additional eye complaints and Denies change in vision ENT: Reports system reviewed and no additional complaints, except as documented, Denies dizziness, Denies headache(s), Denies nasal congestion, Denies nasal discharge and Denies neck pain Cardiovascular: Cardiovascular: Reports no additional cardiovascular complaints, Denies chest pain, Denies leg edema and Denies dyspnea Respiratory: Respiratory: Reports no additional respiratory complaints, Denies cough and Denies dyspnea Gastrointestinal: Gastrointestinal: Reports no additional gastrointestinal complaints, Denies abdominal pain, Denies diarrhea, Denies nausea and Denies vomiting Genitourinary: Genitourinary: Reports no additional female genitourinary complaints and Denies urinary incontinence Musculoskeletal: Musculoskeletal: Reports no additional musculoskeletal complaints, Reports back pain, Denies arthralgias, Denies joint swelling, Denies neck pain, Denies numbness and Denies tingling Integumentary/Breasts: Skin/Breast: Reports system reviewed and no additional complaints, except as docu and Denies rash Neurologic: Reports system reviewed and no additional complaints, except as documented, Denies Abnormal speech present, Denies dizziness, Denies headache(s), Denies numbness, Denies tingling and Denies weakness [facility] Past Medical History Attestation statement: The following information was validated with the patient. Source: old records reviewed and nursing notes reviewed Medical History Arthritis Hair loss Hypovitaminosis D Migraines Surgical History Hx of breast reduction, elective History of section Family History Family History Father Stroke Mother Anxiety Family/Other FH: mental illness Other Family history of arthritis Family history of osteoporosis Social History Social History Alcohol intake: current Alcohol intake frequency: holidays/special occasions only Alcohol type: beer Substance Use Type: Marijuana Advance Directives: No Advance Directives Information Provided: Yes Current occupational status: employed 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, 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 Physical Exam Vital Signs: Vital Signs: Last Vital Signs Temp 97 F 07/30/23 08:35 Pulse 83 07/30/23 08:35 Resp 19 07/30/23 08:35 BP 124/63 07/30/23 08:35 Pulse Ox 97 07/30/23 08:35 BMI result Body Mass Index 26.9 Const: General: cooperative, healthy appearing, comfortable and no acute distress Orientation/consciousness: patient oriented x3 Limitations: no limitations HEENT: Head: Yes normal to inspection Ears: hearing grossly normal bilaterally General nose exam: Normal external nose present Face and sinus: Yes normal facial exam Mouth: Normal oral and palatal mucosa present Throat: Yes posterior oropharynx normal Eyes: General: appearance normal, both eyes and all related structures Pupils: Equal, round and reactive pupils present Neck: Neck: Yes normal visual inspection Chest: Chest palpation & inspection: normal inspection of the chest Resp: Effort & Inspection: normal respiratory effort Auscultation: clear to auscultation bilaterally Cardio: Rate: regular rate Rhythm: regular rhythm Peripheral pulses: Peripheral pulses 2+ throughout GI: Inspection: Yes normal to inspection Palpation (GI): Soft to palpation and nontender Auscultation: normal bowel sounds Back/Spine/Pelvis: Other: Pain on palpation to the lumbar mid spine with no step-offs or deformities. Pain is worsened with flexion and extension of the spine as well as bilateral straight leg raise Thoracic/Lumbar Spine: thoracic and lumbar spine normal to inspection Skin: General skin exam: no rashes or lesions noted Neuro: General: patient oriented x3, no focal motor deficits and normal sensation to monofilament Cranial nerves: Yes Equal, round and reactive pupils present Cognition (Neuro): normal cognition Speech: No Abnormal speech present Gait exam (Neuro): Normal gait present Motor exam (neuro): 5/5 motor strength present throughout Sensory Exam: Normal double simultaneous stimulation for sensation Deep tendon reflexes (DTR's): Right patellar reflex intensity grade: 2+ and Left patellar reflex intensity grade: 2+ Extrem: General: Yes normal to inspection, Yes no pedal edema and Yes no calf tenderness Medications Administered Discontinued Medications Generic Name Dose Route Start Last Admin Trade Name Bernardoq PRN Reason Stop Dose Admin Ketorolac Tromethamine 30 mg 07/30/23 09:29 07/30/23 09:55 Ketorolac Tromethamine 30 Mg/Ml Vial IM 07/30/23 09:30 30 mg ONCE ONE Administration Medical Decision Making Medical Decision Making [facility] Narrative: 47 yo female with a history of arthritis here with complaints of lower back pain since last night after lifting her grandchild. Pain radiates to both her thigh. no associated weakness, numbness, tingling of the extremities. No bowel or bladder incontinence. No fevers or chills. No numbness in the groin. Patient took 1 dose of Flexeril last evening which did not seem to help her pain. She has not tried any additional [id number] medications. Pain on palpation to the lumbar mid spine with no step-offs or deformities. Pain is worsened with flexion and extension of the spine as well as bilateral straight leg raise likely lumbar strain.. No neurological deficits or red flag symptoms to suggest additional process. Patient will be discharged home with recommendations to take Tylenol, will give refill for Flexeril and Lidoderm patches. Reviewed worrisome signs and symptoms of when to return to the emergency room. Comfortable plan for discharge home. Differential Diagnosis Differential Diagnoses: The differential diagnosis associated with the presentation includes Low concern for cauda equina, cord compression, epidural abscess, fracture, malignancy with no red flag symptoms, no neurological deficits, no history of fall or trauma, no history of IV drug abuse or immunocompromised state low concern for renal colic, pyelonephritis low concern for AAA- with gradual onset Admission/Observation Consideration of admission/observation: Escalation of care including admission/observation considered no neurological deficits or red flag symptoms to suggest need for emergent MRI, neurosurgery consultation or transfer to tertiary care center External Record Review External record reviewed: Outpatient record Tests considered The following testing was considered but not selected: no neurological deficits or red flag symptoms to suggest need for emergent MRI no falls or trauma suggest need for x-ray Prescription Management I considered prescription management with: Pain Medication Discharge Plan Discharge Clinical Impression: Strain of lumbar region Patient Disposition: Home, Self-Care Instructions: Low Back Strain (ED) Additional Instructions: heat or ice Gentle stretching No heavy lifting or bending Follow-up with her doctor next week for any continued symptoms Return for incontinence of urine or stool, fever, numbness in the groin calor o hielo Estiramiento suave Sin levantar objetos pesados ??ni agacharse Palma un seguimiento con clark m?dico la pr?xima semana para detectar cualquier s?ntoma persistente. Regreso por incontinencia de orina o heces, fiebre, entumecimiento en la adrian. Prescriptions: New cyclobenzaprine 10 mg tablet 10 mg PO TID PRN (Reason: muscle spasm) Qty: 15 0RF lidocaine [Lidoderm] 5 % adhesive patch,medicated 1 patch topical DAILY Qty: 15 0RF Rx Instructions: leave on most painful area for up to 12 hrs No Action cyclobenzaprine 10 mg tablet 10 mg PO TID PRN (Reason: muscle spasm) Qty: 10 0RF ibuprofen 600 mg tablet 600 mg PO Q8H PRN (Reason: pain) Qty: 14 0RF lidocaine 5 % adhesive patch,medicated 1 patch topical DAILY Qty: 15 0RF Rx Instructions: leave on most painful area for up to 12 hrs (DME) thumb spica splint See Rx Instructions .Route .MEDSUPPLY Qty: 1 0RF Rx Instructions: As directed Referrals: Suki Teresa MD [Primary Care Provider] - 1 week Interventions: ED Discharge Assessment Last Done: 07/30/23 10:36 Discharge Date/Time: 07/30/23 10:37 Print Language: Macanese
== END 2023-07-30 10:37 | disposition home or self-care (01) ==
PROVIDERS: Emergency Provider Emergency Medicine Emergency Medical Services; PCP Internal Medicine
DX: S39.012A Strain of muscle, fascia and tendon of lower back, initial encounter (principal); X50.9XXA Other and unspecified overexertion or strenuous movements or postures, initial encounter; F12.90 Cannabis use, unspecified, uncomplicated; Y93.F2 Activity, caregiving, lifting; Y92.9 Unspecified place or not applicable; Y99.9 Unspecified external cause status
CPT/HCPCS: 96372; 99283; 99284; J1885

== ENCOUNTER 2023-08-31 12:59 | Outpatient (AMB) | payer OTHER, SELFPAY ==
--- NOTE | 2023-08-31 13:08 | A.OFFVIS_ITS ---
Intake Vital Signs 08/31/23 13:15 Height 5 ft Weight 135 lb 6 oz BMI 26.4 BP 143/72 H Blood Pressure Location Lt brachial Position Sitting Respiration 14 Pulse 80 Pulse Source Pulse Oximeter Pulse Oximetry (%) 97 Oxygen Delivery Method Room Air Intake Visit Reasons: Radiculopathy, lumbar region/confirmed Allergies No Known Allergies Allergy (Verified 08/31/23 13:07) HPI HPI Comments History of Present Illness Details Lance Is a very pleasant 48-year-old female who presented to the office today for evaluation and management of her left knee pain. Patient was evaluated recently by Orthopedics for left knee pain, she was subsequently referred here to be evaluated for lumbar radiculopathy. Patient denies pain to the lower back. She reports she has been suffering with left knee pain that is burning in nature and radiates into her lazar which has been present for the last 4 months. She denies inciting injury. Pain is more noticeable at night when she is trying to sleep. She says the pain today is 6/10. She had an x-ray which showed arthritis in June 2023. She is currently taking Tylenol Arthritis and ibuprofen for her pain with minimal relief. She also was given a prescription for cyclobenzaprine that she takes as needed for severe pain but can only take this at bedtime as it causes her to be very drowsy. In terms of muscle damage condition is described as aching, hot, burning, stabbing, sharp, tiring. pain is negatively impacting patient's enjoyment of life, mood, normal work, sleep and walking. 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 Answers questions appropriately. Fully engaged in examination. Skin: warm, dry, intact HEENT: Normocephalic. Hearing intact. Cardiac: External chest normal in appearance. Respiratory: No cough, audible wheezing or stridor. Abdomen: without gross distension. MS: No obvious swelling or deformities. Able to stand on bilateral tiptoes and bilateral heels.? Able to transition from sit to stand unassisted. Ambulates with bilaterally normal heel strike and toe off SLR with without dorsiflexion negative bilaterally RAFAL negative bilaterally lumbar spine nontender to palpation midline vertebrae and paraspinal muscles right knee full range of motion right knee nontender to palpation no notable areas of skin discoloration, temperature changes or hair loss. Neurological: Oriented to person, place, time and situation. Thought process intact. No gait abnormalities appreciated. Psychiatric: Appropriate mood and affect. Good judgment and insight. Results Reviewed Results Reviewed: 07/15/23 FINDINGS: Left knee: The bone and joints appear normal. Surrounding soft tissues normal. Cannot assess for joint effusion on these limited views Right knee limited AP upright: The visualized bone and soft tissues are normal. Cannot assess patellofemoral joint and cannot assess for joint effusion XR/XR knee LT 1V IMPRESSION: LEFT KNEE Limited: Normal. RIGHT KNEE limited: Normal Assessment & Plan Assessment & Plan (1) Neuropathy: Code(s): G62.9 - Polyneuropathy, unspecified (2) Knee pain, left: Code(s): M25.562 - Pain in left knee Plan Lance is a very pleasant 48-year-old female who presents the office today for evaluation management of her left knee pain. Patient was referred here from Orthopedics for concern of lumbar radiculopathy. Patient adamantly denies lower back pain or radiation of the pain from her back down either lower extremity. Patient's main complaint is burning pain to the left knee. She has been suffering with this pain for approximately 4 months, she is awaiting physical therapy that was ordered by recent visit at Orthopedics. Gabapentin 100 mg t.i.d. may cause drowsiness, no driving while taking this medication. Discussed options for treatment including diagnostic interventional testing, epidural steroid injections, peripheral nerve stimulation with Sprint, RFA and more permanent neuromodulation. Informational pamphlets provided. Patient will follow up here in 1 month to evaluate response to the gabapentin and physical therapy. If pain persists will plan for ultrasound-guided left femoral nerve block with local anesthetic, if she reports good relief of her symptoms following the diagnostic injection will schedule for left femoral nerve sprint PNS. All questions and concerns have been answered and patient agrees with the plan. Follow up after injections and sooner if needed. Medications: New gabapentin may cause drowsiness, no driving while taking this medication 100 mg PO TID 90 caps 0RF Coding Level of Care Code New Pt Level 4 (69246) Diagnoses Neuropathy G62.9 Knee pain, left M25.562
[2023-08-31 13:15] VITALS: BP 143/72; PULSE 80; RESP 14; O2SAT 97; BMI 26.4
== END 2023-08-31 13:36 | disposition home or self-care (01) ==
PROVIDERS: PCP Internal Medicine; Visit Provider Registered Nurse Emergency
DX: G62.9 Polyneuropathy, unspecified (principal); M25.562 Pain in left knee
CPT/HCPCS: 99204

== ENCOUNTER → 2023-08-31 12:59 | Outpatient (BNVA) | payer OTHER, SELFPAY | PROVIDERS: PCP Internal Medicine; Visit Provider Registered Nurse Emergency ==

== ENCOUNTER 2023-09-21 09:07 | Outpatient (AMB) | payer OTHER, SELFPAY ==
--- NOTE | 2023-09-21 09:41 | A.OFFVIS_ITS ---
Intake Vital Signs 09/21/23 09:44 Height 5 ft Weight 139 lb BMI 27.1 Intake Visit Reasons: New prob-Ganglion, B/L wrist Intake Note: Lance 48 yr old female who is right hand dominant presents today for right wrist. States she has a small lump that causes pain. States at times the lump feels hard and has radiating pain to her thumb. Also has locking of her thumb for 2-3 months ago. States she was seen with her rhuematologist who advise to be seen with Dr. Toscano. Allergies No Known Allergies Allergy (Verified 09/21/23 09:44) HPI New prob-Ganglion, B/L wrist HPI Details Lance is a 48 year old right hand dominant woman who presents with complaints of a right wrist mass. She complains of a mass on the dorsal aspect of her right wrist, she says this is painful to touch and changes in size. She also complains of pain at the base of her thumbs, particularly the right thumb. She says this is worse with activity. She also complains of bilateral hand numbness, primarily at night. She also complains of numbness and tingling in both hands that is intermittent but daily and particularly bothersome at night and with activities. She has been seen by Rheumatology, who told her she has bilateral BJA, R>L, and she was given a right thumb spica splint to wear with daily activity. 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 She has a hx of Polyarthralgia. 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 Review of Systems Const All systems reviewed & are unremarkable except as noted in HPI and below Physical Exam Vital Signs: BMI result Body Mass Index 27.1 Const General: cooperative, healthy appearing and no acute distress Orientation/consciousness: patient oriented x3 HEENT Head: Yes normocephalic and Yes atraumatic Eyes EOM: EOMs intact bilaterally Resp Effort & Inspection: normal respiratory effort and able to speak in complete sentences Cardio Jugular venous distension: no JVD Skin General skin exam: turgor normal Rashes: no rashes Neuro General: patient oriented x3 Extrem Other: Evaluation of Right Upper Extremity: The patient is alert, oriented, and in no acute distress Neuro: Median, Ulnar, Radial nerves motor and sensory intact and sensation is normal to the tips of all digits No thenar or intrinsic wasting. Vascular: Cap refill brisk ROM: She can make a fist and extend all her digits Skin: No lacerations or abrasions. General: No Ecchymosis. No Erythema or evidence of infection. There is a mass on the dorsal central aspect of her right wrist, best visible when the wrist is put into flexion.. This measures ~1cm in diameter and is consistent with a dorsal wrist ganglion. She also has a positive shoulder sign and some tenderness about the basal joint of the right thumb. No tenderness over the A1 sundeep and no locking or catching. Psych Appearance: grossly normal Affect: normal affect Attitude: cooperative Office Procedures Fracture Care Details: No fracture, aspiration Fracture Billing Code: Fracture Billing Code Assessment & Plan Assessment & Plan (1) Ganglion cyst of dorsum of right wrist: Code(s): M67.431 - Ganglion, right wrist (2) Osteoarthritis of carpometacarpal joint of right thumb: Code(s): M18.11 - Unilateral primary osteoarthritis of first carpometacarpal joint, right hand (3) Bilateral hand numbness: Code(s): R20.0 - Anesthesia of skin (4) Polyarthralgia: Code(s): M25.50 - Pain in unspecified joint Plan Assessment & Plan: 1. Right dorsal wrist gangion Measuring ~1cm in diameter I educated her about this condition I discussed operative and non-operative treatment options The patient would like to proceed with aspiration Aspiration #1: The risks and benefits of aspiration, including but not limited to risk of damage to blood vessels, nerves, tendons, infection, failure to improve symptoms, increased pain, and possible need for further aspirations or surgical intervention. After obtaining written consent, I sterilely prepped the area over the right dorsal wrist. I then injected subcutaneously with a small amount 1% lidocaine. I then passed an 18 gauge needle into the ganglion and aspirated some clear viscous fluid consistent with a ganglion. Some remaining viscous fluid was then pushed out of the ganglion. The patient tolerated this well and with no complications. If this should recur, she knows to contact us and we can talk about further treatment options. 2. Right basal joint OA Based on PE, radiographs none available today. I educated her about this condition I discussed operative and non-operative treatment options I discussed activity modification, she should limit or avoid any heavy or repetitive pinching, gripping, twisting, or scissoring activities She was fitted for a comfort cool brace to wear with daily activities If her symptoms persist or worsen she can follow up to discuss alternative treatment options, including injections. 3. Bilateral hand numbness In the median nerve distribution Primarily at night I ordered a NCS to assess for peripheral nerve compression She will follow up when completed for review Scribed for Patti Toscano MD by Juliocesar Galan, medical records field technician, on 09/21/23 at 9:50 AM, EST. Coding Level of Care Code New Pt Level 4 (17942) Diagnoses Ganglion cyst of dorsum of right wrist M67.431 Osteoarthritis of carpometacarpal joint of right thumb M18.11 Bilateral hand numbness R20.0 Polyarthralgia M25.50 CPT Codes Fracture Care - Fracture Billing Code: Fracture Billing Code ([id number])
[2023-09-21 09:44] VITALS: BMI 27.1
== END 2023-09-21 10:14 | disposition home or self-care (01) ==
PROVIDERS: PCP Internal Medicine; Visit Provider Orthopaedic Surgery
DX: M67.431 Ganglion, right wrist (principal); M18.11 Unilateral primary osteoarthritis of first carpometacarpal joint, right hand; R20.0 Anesthesia of skin; M25.50 Pain in unspecified joint
CPT/HCPCS: 20612; 99214

== ENCOUNTER → 2023-09-21 09:07 | Outpatient (BNVA) | payer OTHER, SELFPAY | PROVIDERS: PCP Internal Medicine; Visit Provider Orthopaedic Surgery | DX: M67.431 Ganglion, right wrist (principal); M18.11 Unilateral primary osteoarthritis of first carpometacarpal joint, right hand; R20.0 Anesthesia of skin; M25.50 Pain in unspecified joint | CPT/HCPCS: 20612 ==

== ENCOUNTER 2023-09-30 12:58 | Outpatient (AMB) | payer OTHER, SELFPAY ==
[2023-09-30 13:05] VITALS: BP 126/70; PULSE 89; RESP 16; O2SAT 98; BMI 27.0
--- NOTE | 2023-09-30 13:05 | A.OFFVIS_ITS ---
Intake Vital Signs 09/30/23 13:05 Height 5 ft Weight 138 lb 4 oz BMI 27.0 BP 126/70 Blood Pressure Location Lt brachial Position Sitting Respiration 16 Pulse 89 Pulse Source Pulse Oximeter Pulse Oximetry (%) 98 Oxygen Delivery Method Room Air Intake Visit Reasons: 1 MONTH FOLLOW UP/confirmed Allergies No Known Allergies Allergy (Verified 09/30/23 13:05) HPI HPI Comments History of Present Illness Details Lance presents back to the office today for follow up left knee pain. Pain today is rated 2/10. She has been taking gabapentin as prescribed and states she feels great . Her pain is well controlled and she is able to be active and mobile. She has not started PT that was ordered by ortho, waiting to schedule. Prior: Lance is a very pleasant 48-year-old female who presented to the office today for evaluation and management of her left knee pain. Patient was evaluated recently by Orthopedics for left knee pain, she was subsequently referred here to be evaluated for lumbar radiculopathy. Patient denies pain to the lower back. She reports she has been suffering with left knee pain that is burning in nature and radiates into her lazar which has been present for the last 4 months. She denies inciting injury. Pain is more noticeable at night when she is trying to sleep. She says the pain today is 6/10. She had an x-ray which showed arthritis in June 2023. She is currently taking Tylenol Arthritis and ibuprofen for her pain with minimal relief. She also was given a prescription for cyclobenzaprine that she takes as needed for severe pain but can only take this at bedtime as it causes her to be very drowsy. In terms of muscle damage condition is described as aching, hot, burning, stabbing, sharp, tiring. Pain is negatively impacting patient's enjoyment of life, mood, normal work, sleep and walking. 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 Answers questions appropriately. Fully engaged in examination. Skin: warm, dry, intact HEENT: Normocephalic. Hearing intact. Cardiac: External chest normal in appearance. Respiratory: No cough, audible wheezing or stridor. Abdomen: without gross distension. MS: No obvious swelling or deformities. Able to transition from sit to stand unassisted. Ambulates with bilaterally normal heel strike and toe off Neurological: Oriented to person, place, time and situation. Thought process intact. No gait abnormalities appreciated. Psychiatric: Appropriate mood and affect. Good judgment and insight. Results Reviewed Results Reviewed: 07/15/23 FINDINGS: Left knee: The bone and joints appear normal. Surrounding soft tissues normal. Cannot assess for joint effusion on these limited views Right knee limited AP upright: The visualized bone and soft tissues are normal. Cannot assess patellofemoral joint and cannot assess for joint effusion XR/XR knee LT 1V IMPRESSION: LEFT KNEE Limited: Normal. RIGHT KNEE limited: Normal Assessment & Plan Assessment & Plan (1) Neuropathy: Code(s): G62.9 - Polyneuropathy, unspecified (2) Knee pain, left: Code(s): M25.562 - Pain in left knee Plan Lance is a very pleasant 48-year-old female who presents the office today for follow up. Patient prescribed gabapentin at last visit which has improved her pain, mobility and function. She would like to continue on this same dose until next visit. Gabapentin 100 mg t.i.d. may cause drowsiness, no driving while taking this medication. Discussed options for treatment including diagnostic interventional testing, epidural steroid injections, peripheral nerve stimulation with Sprint, RFA and more permanent neuromodulation. Informational pamphlets provided. If pain persists will plan for ultrasound-guided left femoral nerve block with local anesthetic, if she reports good relief of her symptoms following the diagnostic injection will schedule for left femoral nerve sprint PNS. All questions and concerns have been answered and patient agrees with the plan. Follow up in 3 months, sooner if needed. Medications: Refilled gabapentin may cause drowsiness, no driving while taking this medication 100 mg PO TID 90 caps 3RF Coding Level of Care Code Est Pt Level 4 (73480) Diagnoses Neuropathy G62.9 Knee pain, left M25.562
== END 2023-09-30 13:17 | disposition home or self-care (01) ==
PROVIDERS: PCP Internal Medicine; Visit Provider Registered Nurse Emergency
DX: G62.9 Polyneuropathy, unspecified (principal); M25.562 Pain in left knee
CPT/HCPCS: 99214

== ENCOUNTER → 2023-09-30 12:58 | Outpatient (BNVA) | payer OTHER, SELFPAY | PROVIDERS: PCP Internal Medicine; Visit Provider Registered Nurse Emergency ==

== ENCOUNTER 2023-11-02 15:12 | Outpatient (REF) | payer OTHER, SELFPAY ==
--- NOTE | 2023-11-02 15:14 | EMG_ITS ---
Chief complaint: ?Bilateral hand numbness, neck pain Reason for referral: Evaluate for Carpal Tunnel Syndrome versus radiculopathy Referred by: ?Dr. Toscano Procedure done: ?Bilateral upper extremities NCS/EMG Precautions and/or limitations: None The limb temperature was monitored continuously and remained between 32-36 degrees C during the performance of the NCS. Nerve Conduction Studies Anti Sensory Summary Table ?Stim Site NR Onset (ms) Norm Onset (ms) Peak (ms) Norm Peak (ms) O-P Amp (?V) Norm O-P Amp Site1 Site2 Delta-0 (ms) Dist (cm) Lennox (m/s) Norm Lennox (m/s) Left Median Anti Sensory (2nd Digit) Wrist ? 2.3 3.0 <3.6 24.2 >10 Wrist 2nd Digit 2.3 14.0 61 Right Median Anti Sensory (2nd Digit) Wrist ? 1.9 2.8 <3.6 50.9 >10 Wrist 2nd Digit 1.9 14.0 74 Left Ulnar Anti Sensory (5th Digit) Wrist ? 2.3 2.8 <3.7 33.2 >15.0 Wrist 5th Digit 2.3 14.0 61 Right Ulnar Anti Sensory (5th Digit) Wrist ? 2.0 2.7 <3.7 23.8 >15.0 Wrist 5th Digit 2.0 14.0 70 Motor Summary Table ?Stim Site NR Onset (ms) Norm Onset (ms) O-P Amp (mV) Norm O-P Amp iAmp (mV) Amp (1st) (%) Site1 Site2 Delta-0 (ms) Dist (cm) Lennox (m/s) Norm Lennox (m/s) Left Median Motor (Abd Poll Brev) Wrist ? 2.7 <3.9 12.7 >4.5 15.2 100.0 Elbow Wrist 2.8 17.0 61 >45 Elbow ? 5.5 12.9 15.5 101.6 Right Median Motor (Abd Poll Brev) Wrist ? 2.8 <3.9 13.5 >4.5 14.7 100.0 Elbow Wrist 2.8 17.0 61 >45 Elbow ? 5.6 13.1 14.7 97.0 Left Ulnar Motor (Abd Dig Minimi) Wrist ? 2.5 <3.0 9.5 >5 11.8 100.0 B Elbow Wrist 2.2 15.0 68 >45 B Elbow ? 4.7 8.8 11.0 92.6 A Elbow B Elbow 1.7 10.0 59 >45 A Elbow ? 6.4 8.5 10.7 89.5 Right Ulnar Motor (Abd Dig Minimi) Wrist ? 2.3 <3.0 12.1 >5 14.0 100.0 B Elbow Wrist 2.3 15.5 67 >45 B Elbow ? 4.6 11.6 13.7 95.9 A Elbow B Elbow 1.3 10.0 77 >45 A Elbow ? 5.9 11.2 13.3 92.6 Comparison Summary Table ?Stim Site NR Peak (ms) Norm Peak (ms) P-T Amp (?V) Site1 Site2 Delta-P (ms) Norm Delta (ms) Right Median/Radial Dig I Comparison (Digit 1 - 10cm) Median ? 2.2 <2.9 90.3 Median Radial 0.0 Radial ? 2.2 <2.8 19.8 EMG ?Side Muscle Nerve Root Ins Act Fibs Psw Amp Dur Poly Recrt Int Pat Comment Right 1stDorInt Ulnar C8-T1 Nml Nml Nml Nml Nml 0 Nml Complete Right FlexCarRad Median C6-7 Nml Nml Nml Nml Nml 0 Nml Complete Right Biceps Musculocut C5-6 Nml Nml Nml Nml Nml 0 Nml Complete Right Triceps Radial C6-7-8 Nml Nml Nml Nml Nml 0 Nml Complete Right Deltoid Axillary C5-6 Nml Nml Nml Nml Nml 0 Nml Complete Left 1stDorInt Ulnar C8-T1 Nml Nml Nml Nml Nml 0 Nml Complete Left FlexCarRad Median C6-7 Nml Nml Nml Nml Nml 0 Nml Complete Left Biceps Musculocut C5-6 Nml Nml Nml Nml Nml 0 Nml Complete Left Triceps Radial C6-7-8 Nml Nml Nml Nml Nml 0 Nml Complete Left Deltoid Axillary C5-6 Nml Nml Nml Nml Nml 0 Nml Complete FINDINGS: All motor and sensory nerves tested showed normal latencies, amplitudes and conduction velocities. Concentric needle EMG was performed in selected muscles of the bilateral upper extremities. Study did not reveal signs of electric abnormalities as shown in the table below. ? IMPRESSION: 1. This is a normal study. 2. There is no electrodiagnostic evidence for median neuropathy, ulnar neuropathy, brachial plexopathy, or cervical radiculopathy. Thank you for your kind referral. Dinora Clement MD, LINETTE Board Certified, [place] [employer] and Rehabilitation (ABPMR) Board Certified, [place] Board of Electrodiagnostic Medicine (ABEM) CODIN [id number] x 2 MTDD
== END 2023-11-02 15:13 | disposition home or self-care (01) ==
LOC: HO.NEURO 15:12
PROVIDERS: PCP Internal Medicine; Visit Provider Orthopaedic Surgery
DX: R20.0 Anesthesia of skin (principal); R20.2 Paresthesia of skin
CPT/HCPCS: 95886; 95911

== ENCOUNTER → 2023-11-02 15:14 | Outpatient (BNV) | payer OTHER, SELFPAY | PROVIDERS: PCP Internal Medicine; Visit Provider Physical Medicine & Rehabilitation | DX: R20.2 Paresthesia of skin (principal); M54.2 Cervicalgia | CPT/HCPCS: 95886; 95911 ==

== ENCOUNTER 2023-11-25 09:00 | Outpatient (RCR) | payer OTHER, SELFPAY ==
--- NOTE | 2023-11-03 12:33 | MHC.PT.EP ---
[facility] [place] Office [place] Office [place] Office [address] [place] [address] [phone] F: [phone] F: [phone] F: [phone] F: [phone] Physical Therapy Plan of Care Date of Evaluation: 11/03/23 Date of Surgery: Diagnosis: Lumbar radiculopathy Assessment: Patient is a pleasant 48 y.o. female who is referred to PT by Leeann oRlon PA-C, with Dx of lumbar radiculopathy. X-ray imaging of lumbar spine and L foot reveal, Left calcaneal spur. Partial sacralization left side of L5 without evidence of acute fracture, spondylolisthesis, or spondylolysis. Patient impairments include pain, poor posture and body mechanics, limited ROM, weakness, antalgic gait. Patient current functional limitations are prolonged sitting, bending, lifting objects, prolonged standing. Patient will benefit from skilled PT to address aforementioned impairments and functional limitations to meet established goals. Frequency and Duration: The patient will be seen 2x/week for 4 weeks Short Term Goals: 2 weeks Patient demonstrates consistency and independence with HEP to self manage symptoms. Patient is able to demonstrate proper body mechanics to protect low back with bending and lifting for work tasks. [employer] Team Member Goals: 4 weeks Patient presents with increased L hip flexion 5/5 to be able to squat for lifting at work. Patient presents with increased lumbar AROM sidebending 30 degrees to restore mobility for lifting and carrying objects. Treatment Plan: Modalities to reduce pain, spasms and effusion. Manual therapy to restore motion and function. Therapeutic exercise to improve strength and flexibility. Neuromuscular re-education for posture and balance. Therapeutic activities to return to functional activities of daily living. Electronically signed by: Solo Lorenz, PT, DPT Please sign and return to therapist. Thank you for your referral.
--- NOTE | 2023-12-21 17:07 | MHC.PT.DC ---
[facility] [place] Office [place] Office [place] Office [address] [place] [address] [phone] F: [phone] F: [phone] F: [phone] F: [phone] Physical Therapy Discharge Report Diagnosis: Lumbar radiculopathy Date of Surgery: Date of Evaluation: 11/02/23 Date of Discharge: 12/21/23 Treatments to Date: 7 Cancellations to Date: 1 No Shows to Date: Discharge Status: Improved Function Independent with HEP Patient Elected to Stop Discharge Summary: Lance ceased attending PT she she was noting progress in her sxs. The assessment on her last treatment is, Since she reports progress since last session I kept the session the same, only adding new seated core exercises for strengthing as her sxs are centralized to low back today. She reports feeling good end of session without leg sxs. Therefore she is discharged from PT at this time. Electronically signed by: Solo Lorenz, PT, DPT Please sign and return to therapist. Thank you for your referral.
== END 2023-12-21 17:08 | disposition home or self-care (01) ==
LOC: HO.PT 09:00
PROVIDERS: PCP Internal Medicine; Visit Provider Physician Assistant
DX: M54.16 Radiculopathy, lumbar region (principal)
CPT/HCPCS: 97012; 97110; 97140; 97161; 97530

== ENCOUNTER 2024-01-06 08:56 | Outpatient (AMB) | payer OTHER, SELFPAY ==
[2024-01-06 09:04] VITALS: BP 125/69; PULSE 94; RESP 16; O2SAT 94; BMI 26.4
--- NOTE | 2024-01-06 09:04 | MHC.OFFVIS ---
Intake Vital Signs 01/06/24 09:04 Height 5 ft Weight 135 lb 4 oz BMI 26.4 BP 125/69 Blood Pressure Location Lt brachial Position Sitting Respiration 16 Pulse 94 Pulse Source Pulse Oximeter Pulse Oximetry (%) 94 Oxygen Delivery Method Room Air Intake Visit Reasons: follow up Allergies No Known Allergies Allergy (Verified 01/06/24 09:05) HPI HPI Comments History of Present Illness Details Patient presents back to the office today for follow up. She has been taking gabapentin with good effect, no knee pain today. Pain will increase to 2/10 with overuse such as when she is working. Overall feels it is managed well with the current regimen of her gabapentin she would like to remain on the same dose. Today reporting 8/10 bilateral hand pain. She is currently under the care of Dr. Toscano, hand surgeon. Awaiting her next follow-up appointment to further discuss. Prior: Lance presents back to the office today for follow up left knee pain. Pain today is rated 2/10. She has been taking gabapentin as prescribed and states she feels great . Her pain is well controlled and she is able to be active and mobile. She has not started PT that was ordered by ortho, waiting to schedule. Prior: Lance is a very pleasant 48-year-old female who presented to the office today for evaluation and management of her left knee pain. Patient was evaluated recently by Orthopedics for left knee pain, she was subsequently referred here to be evaluated for lumbar radiculopathy. Patient denies pain to the lower back. She reports she has been suffering with left knee pain that is burning in nature and radiates into her lazar which has been present for the last 4 months. She denies inciting injury. Pain is more noticeable at night when she is trying to sleep. She says the pain today is 6/10. She had an x-ray which showed arthritis in June 2023. She is currently taking Tylenol Arthritis and ibuprofen for her pain with minimal relief. She also was given a prescription for cyclobenzaprine that she takes as needed for severe pain but can only take this at bedtime as it causes her to be very drowsy. In terms of muscle damage condition is described as aching, hot, burning, stabbing, sharp, tiring. Pain is negatively impacting patient's enjoyment of life, mood, normal work, sleep and walking. 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 Answers questions appropriately. Fully engaged in examination. Skin: warm, dry, intact HEENT: Normocephalic. Hearing intact. Cardiac: External chest normal in appearance. Respiratory: No cough, audible wheezing or stridor. Abdomen: without gross distension. MS: No obvious swelling or deformities. Able to transition from sit to stand unassisted. Ambulates with bilaterally normal heel strike and toe off Neurological: Oriented to person, place, time and situation. Thought process intact. No gait abnormalities appreciated. Psychiatric: Appropriate mood and affect. Good judgment and insight. Results Reviewed Results Reviewed: 07/15/23 FINDINGS: Left knee: The bone and joints appear normal. Surrounding soft tissues normal. Cannot assess for joint effusion on these limited views Right knee limited AP upright: The visualized bone and soft tissues are normal. Cannot assess patellofemoral joint and cannot assess for joint effusion XR/XR knee LT 1V IMPRESSION: LEFT KNEE Limited: Normal. RIGHT KNEE limited: Normal Assessment & Plan Assessment & Plan (1) Neuropathy: Code(s): G62.9 - Polyneuropathy, unspecified (2) Knee pain, left: Code(s): M25.562 - Pain in left knee Plan Lance is a very pleasant 48-year-old female who presents the office today for follow up, medication management. Patient prescribed gabapentin which has improved her pain, mobility and function. She is tolerating well and would like to continue on this same dose until next visit. Gabapentin 100 mg t.i.d. may cause drowsiness, no driving while taking this medication. All questions and concerns have been answered and patient agrees with the plan. Follow up in 6 months, sooner if needed. Medications: Refilled gabapentin may cause drowsiness, no driving while taking this medication 100 mg PO TID 90 caps 6RF Coding Level of Care Code Est Pt Level 4 (73424) Diagnoses Neuropathy G62.9 Knee pain, left M25.562
== END 2024-01-06 09:08 | disposition home or self-care (01) ==
PROVIDERS: PCP Internal Medicine; Visit Provider Registered Nurse Emergency
DX: G62.9 Polyneuropathy, unspecified (principal); M25.562 Pain in left knee
CPT/HCPCS: 99214

== ENCOUNTER → 2024-01-06 08:56 | Outpatient (BNVA) | payer OTHER, SELFPAY | PROVIDERS: PCP Internal Medicine; Visit Provider Registered Nurse Emergency ==

== ENCOUNTER 2024-04-18 10:21 | Outpatient (REF) | payer OTHER, SELFPAY | END 2024-04-18 10:22 | disposition home or self-care (01) | LOC: HO.HOSX 10:21 | PROVIDERS: Visit Provider Orthopaedic Surgery | DX: Z13.89 Encounter for screening for other disorder (principal) ==

== ENCOUNTER 2024-05-28 03:34 | Emergency (ER) | payer OTHER, SELFPAY ==
[2024-05-28 03:41] VITALS: BP 127/57; PULSE 75; RESP 20; TEMP 36.9; O2SAT 97; BMI 27.3
--- NOTE | 2024-05-28 04:35 | ED.BACK ---
HPI - Back Pain/Injury General Chief Complaint: Back Pain/Injury Stated Complaint: Lower back pain Time Seen by Provider: 05/28/24 04:20 Source: patient Mode of arrival: ambulatory Limitations: no limitations History of Present Illness ED Provider: suellen SEBASTIAN Narrative: Patient's history of chronic pain on gabapentin complaining of atraumatic pain in the right lower back radiating to the right leg for last 4 days no urinary complaints, no fall no midline tenderness no bladder or bowel involvement urinary complaint Related Data Previous Rx's ?Medication ?Instructions ?Recorded cyclobenzaprine 10 mg tablet 10 mg PO TID PRN muscle spasm #10 01/13/22 tabs ibuprofen 600 mg tablet 600 mg PO Q8H PRN pain #14 tabs 05/14/23 lidocaine 5 % topical patch 1 patch topical DAILY #15 ea 05/14/23 thumb spica splint #1 ea 07/29/23 gabapentin 100 mg capsule 100 mg PO TID #90 caps 01/06/24 cyclobenzaprine 10 mg tablet 10 mg PO Q8H #20 tabs 05/28/24 ibuprofen 600 mg tablet 600 mg PO Q6H PRN fever or pain 05/28/24 #30 tabs morphine 15 mg immediate release 15 mg PO Q8H PRN pain #15 tabs 05/28/24 tablet Allergies Allergy/AdvReac Type Severity Reaction Status Date / Time No Known Allergies Allergy Verified 05/28/24 03:42 Review of Systems Review of Systems: Yes all other systems are reviewed and are negative PMFSH Past Medical History Medical History Arthritis Hair loss Hypovitaminosis D Migraines Surgical History Hx of breast reduction, elective History of section Family History Family History Father Stroke Mother Anxiety Family/Other FH: mental illness Other Family history of arthritis Family history of osteoporosis Social History Social History Alcohol intake: never Smoked in Last 30 Days: No Use of substances other than those prescribed or required for medical reasons: Yes Substance Use Type: Marijuana Advance Directives: No Advance Directives Information Provided: Yes Patient : No Current occupational status: employed 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 Oriented X3. No acute distress. ENT: Pharynx normal. Oral Mucosa moist Neck: Normal inspection. Neck supple. CVS: Normal heart rate and rhythm. Pulses normal. Respiratory: No respiratory distress. Equal air entry bilateral, Abdomen: Soft and nontender. Bowel sounds are present, no mass palpable, no CVA tenderness Skin: Skin warm and dry. Normal skin color. Normal skin turgor. Extremities: No lower extremity edema. No calf tenderness tenderness right sciatic area SLR positive right leg at 60 degrees no neuro deficits Neuro: Oriented X 3. No motor deficit. No sensory deficit.No cerebellar signs , cranial nerves II-XII intact Medications Administered Discontinued Medications Generic Name Dose Route Start Last Admin Trade Name Freq PRN Reason Stop Dose Admin Cyclobenzaprine HCl 10 mg 05/28/24 04:29 05/28/24 04:39 Cyclobenzaprine Hcl 10 Mg Tablet PO 05/28/24 04:30 10 mg ONCE ONE Administration Ibuprofen 600 mg 05/28/24 04:29 05/28/24 04:39 Ibuprofen 600 Mg Tablet PO 05/28/24 04:30 600 mg ONCE ONE Administration Morphine Sulfate 15 mg 05/28/24 04:29 05/28/24 04:40 Morphine Sulfate Immed Release 15 Mg Tablet PO 05/28/24 04:30 15 mg ONCE ONE Administration Medical Decision Making Medical Decision Making MDM Narrative: Patient's right sciatica pain no signs of vertebral lesion no signs of nerve entrapment Discharge Plan Discharge Clinical Impression: Right sciatic nerve pain Patient Disposition: Home, Self-Care Instructions: Sciatica (ED) Additional Instructions: Take pain medication and muscle relaxant as advised Follow up with your PCP if not better Prescriptions: New cyclobenzaprine 10 mg tablet 10 mg PO Q8H Qty: 20 0RF ibuprofen 600 mg tablet 600 mg PO Q6H PRN (Reason: fever or pain) Qty: 30 0RF morphine 15 mg tablet 15 mg PO Q8H PRN (Reason: pain) Qty: 15 0RF Rx Instructions: Partial Fill upon patient request. No Action cyclobenzaprine 10 mg tablet 10 mg PO TID PRN (Reason: muscle spasm) Qty: 10 0RF ibuprofen 600 mg tablet 600 mg PO Q8H PRN (Reason: pain) Qty: 14 0RF lidocaine 5 % adhesive patch,medicated 1 patch topical DAILY Qty: 15 0RF Rx Instructions: leave on most painful area for up to 12 hrs (DME) thumb spica splint See Rx Instructions .Route .MEDSUPPLY Qty: 1 0RF Rx Instructions: As directed gabapentin 100 mg capsule 100 mg PO TID Qty: 90 6RF Rx Instructions: may cause drowsiness, no driving while taking this medication Stand Alone Forms: Work/School Release Interventions: ED Discharge Assessment Last Done: 05/28/24 04:50 Discharge Date/Time: 05/28/24 04:52 Print Language: Portuguese
[2024-05-28] MEDS: Cyclobenzaprine HCl 10 MG TABLET PO (04:39)
[2024-05-28] MEDS: Ibuprofen 600 MG TABLET PO (04:39)
[2024-05-28] MEDS: Morphine Sulfate Immed Release 15 MG TABLET PO (04:40)
[2024-05-28 04:50] VITALS: BP 120/62; PULSE 68; RESP 18; TEMP 36.8; O2SAT 97
== END 2024-05-28 04:52 | disposition home or self-care (01) ==
PROVIDERS: Emergency Provider Internal Medicine; PCP Internal Medicine
DX: M54.41 Lumbago with sciatica, right side (principal); Z79.899 Other long term (current) drug therapy
CPT/HCPCS: 99283; 99284

== ENCOUNTER 2024-07-06 08:59 | Outpatient (AMB) | payer OTHER, SELFPAY ==
[2024-07-06 09:04] VITALS: BP 128/61; PULSE 71; O2SAT 99; BMI 26.4
--- NOTE | 2024-07-06 09:04 | MHC.OFFVIS ---
Vital Signs 07/06/24 09:04 Height 5 ft Weight 135 lb BMI 26.4 BP 128/61 Blood Pressure Location Lt brachial Position Sitting Pulse 71 Pulse Source Pulse Oximeter Pulse Oximetry (%) 99 Oxygen Delivery Method Room Air Intake Visit Reasons: 6 MONTH FOLLOW UP Allergies No Known Allergies Allergy (Verified 07/06/24 09:05) Medication List - Last Reconciled 07/06/24 by Aniya Perkins cyclobenzaprine 10 mg PO TID PRN cyclobenzaprine 10 mg PO Q8H gabapentin 100 mg PO TID ibuprofen 600 mg PO Q8H PRN ibuprofen 600 mg PO Q6H PRN lidocaine 5% 1 patch topical DAILY morphine 15 mg PO Q8H PRN [thumb spica splint As directed] HPI Comments Details: Lance presents back to the office today for follow-up Continues with gabapentin 100 mg t.i.d. with good effect. Reports pain in her knee has been well-controlled with this medication. Denies any side effects of the medication She denies changes in her past medical history, allergies or medications. Prior: Patient presents back to the office today for follow up. She has been taking gabapentin with good effect, no knee pain today. Pain will increase to 2/10 with overuse such as when she is working. Overall feels it is managed well with the current regimen of her gabapentin she would like to remain on the same dose. Today reporting 8/10 bilateral hand pain. She is currently under the care of Dr. Toscano, hand surgeon. Awaiting her next follow-up appointment to further discuss. Prior: Lance presents back to the office today for follow up left knee pain. Pain today is rated 2/10. She has been taking gabapentin as prescribed and states she feels great . Her pain is well controlled and she is able to be active and mobile. She has not started PT that was ordered by ortho, waiting to schedule. Prior: Lance is a very pleasant 48-year-old female who presented to the office today for evaluation and management of her left knee pain. Patient was evaluated recently by Orthopedics for left knee pain, she was subsequently referred here to be evaluated for lumbar radiculopathy. Patient denies pain to the lower back. She reports she has been suffering with left knee pain that is burning in nature and radiates into her lazar which has been present for the last 4 months. She denies inciting injury. Pain is more noticeable at night when she is trying to sleep. She says the pain today is 6/10. She had an x-ray which showed arthritis in June 2023. She is currently taking Tylenol Arthritis and ibuprofen for her pain with minimal relief. She also was given a prescription for cyclobenzaprine that she takes as needed for severe pain but can only take this at bedtime as it causes her to be very drowsy. In terms of muscle damage condition is described as aching, hot, burning, stabbing, sharp, tiring. Pain is negatively impacting patient's enjoyment of life, mood, normal work, sleep and walking. 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 Answers questions appropriately. Fully engaged in examination. Skin: warm, dry, intact HEENT: Normocephalic. Hearing intact. Cardiac: External chest normal in appearance. Respiratory: No cough, audible wheezing or stridor. Abdomen: without gross distension. MS: No obvious swelling or deformities. Able to transition from sit to stand unassisted. Ambulates with bilaterally normal heel strike and toe off Neurological: Oriented to person, place, time and situation. Thought process intact. No gait abnormalities appreciated. Psychiatric: Appropriate mood and affect. Good judgment and insight. Results Reviewed Results Reviewed: 07/15/23 FINDINGS: Left knee: The bone and joints appear normal. Surrounding soft tissues normal. Cannot assess for joint effusion on these limited views Right knee limited AP upright: The visualized bone and soft tissues are normal. Cannot assess patellofemoral joint and cannot assess for joint effusion XR/XR knee LT 1V IMPRESSION: LEFT KNEE Limited: Normal. RIGHT KNEE limited: Normal Assessment & Plan Assessment & Plan (1) Neuropathy: Code(s): G62.9 - Polyneuropathy, unspecified Category: Medical (2) Knee pain, left: Code(s): M25.562 - Pain in left knee Category: Medical Plan Lance presented back to the office today for follow up knee pain, medication management. Patient prescribed gabapentin which has improved her pain, mobility and function. She is tolerating well and would like to continue on this same dose until next visit. Gabapentin 100 mg t.i.d. may cause drowsiness, no driving while taking this medication. All questions and concerns have been answered and patient agrees with the plan. Follow up in 6 months, sooner if needed. Medications: Refilled gabapentin may cause drowsiness, no driving while taking this medication 100 mg PO TID 90 caps 6RF Coding Level of Care Code Est Pt Level 3 (67865) Complex EM visit Add On G2211 Diagnoses Neuropathy G62.9 Knee pain, left M25.562
== END 2024-07-06 09:13 | disposition home or self-care (01) ==
PROVIDERS: PCP Internal Medicine; Visit Provider Registered Nurse Emergency
DX: G62.9 Polyneuropathy, unspecified (principal); M25.562 Pain in left knee
CPT/HCPCS: 99213

== ENCOUNTER → 2024-07-06 08:59 | Outpatient (BNVA) | payer OTHER, SELFPAY | PROVIDERS: PCP Internal Medicine; Visit Provider Registered Nurse Emergency ==

== ENCOUNTER 2025-01-09 11:15 | Outpatient (AMB) | payer OTHER, SELFPAY ==
--- NOTE | 2025-01-09 11:18 | A.OFFVIS_ITS ---
Vital Signs 01/09/25 11:19 Height 5 ft Weight 140 lb BMI 27.3 BP 136/64 Blood Pressure Location Lt brachial Position Sitting Respiration 16 Pulse 79 Pulse Source Pulse Oximeter Pulse Oximetry (%) 97 Oxygen Delivery Method Room Air Intake Visit Reasons: 6 Month Follow Up Spanish Speaking Babysitter Required: No Allergies No Known Allergies Allergy (Verified 01/09/25 11:20) Medication List - Last Reconciled 01/09/25 by Paulette Taylor LPN cyclobenzaprine 10 mg PO TID PRN gabapentin 100 mg PO TID ibuprofen 600 mg PO Q8H PRN lidocaine 5% 1 patch topical DAILY morphine 15 mg PO Q8H PRN [thumb spica splint As directed] HPI Comments Details: Patient presents back to the office today for follow-up Complaining of continued left knee pain. Reports it has been getting worse secondary to increase walking related to her work She has also been suffering with left foot pain due to a heel spur. She has not recently been evaluated by Podiatry Did find relief with gabapentin 100 mg 3 times daily but states it is not as effective as it previously was Denies any side effects of the medication Prior: Lance presents back to the office today for follow-up Continues with gabapentin 100 mg t.i.d. with good effect. Reports pain in her knee has been well-controlled with this medication. Denies any side effects of the medication She denies changes in her past medical history, allergies or medications. Prior: Patient presents back to the office today for follow up. She has been taking gabapentin with good effect, no knee pain today. Pain will increase to 2/10 with overuse such as when she is working. Overall feels it is managed well with the current regimen of her gabapentin she would like to remain on the same dose. Today reporting 8/10 bilateral hand pain. She is currently under the care of Dr. Toscano, hand surgeon. Awaiting her next follow-up appointment to further discuss. Prior: Lance presents back to the office today for follow up left knee pain. Pain today is rated 2/10. She has been taking gabapentin as prescribed and states she feels great . Her pain is well controlled and she is able to be active and mobile. She has not started PT that was ordered by ortho, waiting to schedule. Prior: Lance is a very pleasant 48-year-old female who presented to the office today for evaluation and management of her left knee pain. Patient was evaluated recently by Orthopedics for left knee pain, she was subsequently referred here to be evaluated for lumbar radiculopathy. Patient denies pain to the lower back. She reports she has been suffering with left knee pain that is burning in nature and radiates into her lazar which has been present for the last 4 months. She denies inciting injury. Pain is more noticeable at night when she is trying to sleep. She says the pain today is 6/10. She had an x-ray which showed arthritis in June 2023. She is currently taking Tylenol Arthritis and ibuprofen for her pain with minimal relief. She also was given a prescription for cyclobenzaprine that she takes as needed for severe pain but can only take this at bedtime as it causes her to be very drowsy. In terms of muscle damage condition is described as aching, hot, burning, stabbing, sharp, tiring. Pain is negatively impacting patient's enjoyment of life, mood, normal work, sleep and walking. 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 Answers questions appropriately. Fully engaged in examination. Skin: warm, dry, intact HEENT: Normocephalic. Hearing intact. Cardiac: External chest normal in appearance. Respiratory: No cough, audible wheezing or stridor. Abdomen: without gross distension. MS: No obvious swelling or deformities. Able to transition from sit to stand unassisted. Ambulates with bilaterally normal heel strike and toe off Neurological: Oriented to person, place, time and situation. Thought process intact. No gait abnormalities appreciated. Psychiatric: Appropriate mood and affect. Good judgment and insight. Results Reviewed Results Reviewed: 07/15/23 FINDINGS: Left knee: The bone and joints appear normal. Surrounding soft tissues normal. Cannot assess for joint effusion on these limited views Right knee limited AP upright: The visualized bone and soft tissues are normal. Cannot assess patellofemoral joint and cannot assess for joint effusion XR/XR knee LT 1V IMPRESSION: LEFT KNEE Limited: Normal. RIGHT KNEE limited: Normal Assessment & Plan Assessment & Plan (1) Neuropathy: Code(s): G62.9 - Polyneuropathy, unspecified Category: Medical (2) Knee pain, left: Code(s): M25.562 - Pain in left knee Category: Medical Plan Lance presented back to the office today for follow up left knee pain and medication management. Patient not interested in interventional management at this time. She will consider injections if pain is not controlled with gabapentin. Will increase gabapentin to 200 mg 3 times daily. Referral placed to Podiatry All questions and concerns have been answered and patient agrees with the plan. Follow up in 6 months, sooner if needed. Orders: Referrals Podiatry Referral M77.30 - Calcaneal spur, unspecified foot Medications: Changed From gabapentin may cause drowsiness, no driving while taking this medication 100 mg PO TID 90 caps 6RF To gabapentin may cause drowsiness, no driving while taking this medication 200 mg (2 x 100 mg) PO TID 180 caps 6RF Coding Level of Care Code Est Pt Level 3 (78470) Complex EM visit Add On G2211 Diagnoses Neuropathy G62.9 Knee pain, left M25.562
[2025-01-09 11:19] VITALS: BP 136/64; PULSE 79; RESP 16; O2SAT 97; BMI 27.3
== END 2025-01-09 11:34 | disposition home or self-care (01) ==
LOC: HO.PMC 11:16
PROVIDERS: PCP Internal Medicine; Visit Provider Registered Nurse Emergency
DX: G62.9 Polyneuropathy, unspecified (principal); M25.562 Pain in left knee
CPT/HCPCS: 99213

== ENCOUNTER → 2025-01-09 11:15 | Outpatient (BNVA) | payer OTHER, SELFPAY | PROVIDERS: PCP Internal Medicine; Visit Provider Registered Nurse Emergency ==

== ENCOUNTER 2025-02-28 09:32 | Observation (INO) | payer OTHER, SELFPAY ==
--- NOTE | ~2025-02-28 | CT_ITS ---
EXAMINATION: CT ABDOMEN AND PELVIS WITH CONTRAST CLINICAL INFORMATION: Diffuse abdominal pain. COMPARISON: July 16, 2021. TECHNIQUE: Multidetector volumetric images were obtained from the superior aspect of the liver through the pubic symphysis following administration 85 mL of Omnipaque 350 intravenous contrast. Sagittal and coronal reformatted images were obtained on the technologist's workstation. Oral contrast: No This CT examination was performed using dose optimization techniques as appropriate, variously including the following: *Automated exposure control *Adjustment of mA and/or kV according to patient size (this includes techniques or standardized protocols for targeted exams where dose is matched to indication/reason for exam; i.e. extremities or head) *Use of iterative reconstruction technique. DLP: 510 mGy centimeter. FINDINGS: LUNG BASES: No gross acute airspace disease. LIVER, GALLBLADDER, AND BILIARY TREE: Liver measures 18 cm. No focal mass. Portal veins, hepatic veins and intrahepatic portion of the IVC are patent. No intrahepatic biliary ductal dilatation. Status post cholecystectomy. Common bile duct measures 4 mm. PANCREAS: No focal mass. No peripancreatic fluid collection. SPLEEN: 7 cm. No focal lesion. ADRENAL GLANDS: No nodular lesion. KIDNEYS AND URETERS: No hydronephrosis. No gross nephrolithiasis. No gross renal mass. BLADDER: Fluid-filled. GASTROINTESTINAL TRACT: Gas and fluid-filled prominent duodenal jejunal loops with a collapsed appearance of the ileal loops. Collapsed appearance of the left hemicolon and questionable wall thickening and the descending colon. No pneumatosis intestinalis. I do not see the appendix, no mesocecum edema. Segmental areas of apparent wall thickening distal ileal lobes. No ascites. No pneumoperitoneum. No peripheral enhancing fluid collections in the peritoneal cavity. ABDOMINAL WALL: Small fat-containing umbilical hernia with diastases abdominal rectus muscles. LYMPH NODES: Nonspecific prominent, mesenteric and retroperitoneal. VASCULAR: No aneurysm or dissection, abdominal aorta. PELVIC VISCERA: Heterogeneous nodular uterus is in retroversion flexion position and likely enlarged. OSSEOUS STRUCTURES: Multilevel thoracic spondylosis. Prominent left transverse processes of L5 articulating with the sacrum. No acute fracture in the axial skeleton. 1 mm retrolisthesis L3-4. CT/CT abdomen pelvis w IV con IMPRESSION: Concerning inflammatory bowel disease in the correct clinical settings with regional ileus versus partial/intermittent mid small bowel obstruction. Leiomyomata uterine. Hepatomegaly, mild. Fleischner guidelines were followed. Electronically signed by: Hawk Ross MD 02/28/2025 11:24 AM EDT RP
[2025-02-28 09:44] VITALS: BP 108/51; PULSE 94; RESP 16; TEMP 36.6; O2SAT 99; BMI 27.1
--- NOTE | 2025-02-28 09:52 | ECG_ITS ---
Test Reason : epigastric pain Blood Pressure : */* mmHG Vent. Rate : 87 BPM Atrial Rate : 87 BPM P-R Int : 122 ms QRS Dur : 80 ms QT Int : 354 ms P-R-T Axes : 62 -15 17 degrees QTcB Int : 425 ms Normal sinus rhythm Normal ECG When compared with ECG of 08-May-2009 19:24, No significant changes seen Referred By: Roberta Agarwal Electronically Signed By: DEE SCHAEFFER
[2025-02-28 10:12] LABS: Hematocrit 44.1 % (37.0-47.0); Hemoglobin 15.4 g/dl (12.0-16.0); Mean Corpuscular HGB Conc 34.9 g/dl (31.0-35.0); Mean Corpuscular Hemoglobin 30.2 pg (27.0-33.0); Mean Corpuscular Volume 86.5 fL (80.0-98.0); Mean Platelet Volume 8.4 fL (9.4-12.3); Platelet Count 320 X10*3/uL (160-400); Red Cell Distribution Width 12.2 % (11.0-16.0); White Blood Count 17.1 X10*3/uL (4.8-10.8)
[2025-02-28] MEDS: ondansetron HCL 4 MG/2 ML VIAL IVPUSH ×2 (10:13→14:22)
[2025-02-28] MEDS: Acetaminophen 1,000 MG/100 ML PIGGYBACK 400 MG IV (10:14)
[2025-02-28] MEDS: Lactated Ringers 1,000 ML 999 ML IV (10:14)
[2025-02-28 10:32] LABS: Appearance Urine Cloudy; Color Urine Yellow; Glucose Urine UA Negative (Negative); Leukocyte Esterase Urine Negative (Negative); Nitrite Urine Negative (Negative); Specific Gravity - Urine >= 1.030 (1.005-1.025); UMIC TRIGGER UACC YES; Urine Blood Moderate (2+) (Negative); Urine Ketones 15 mg/dL (Negative); Urine Protein 30 (1+) mg/dL (Neg-Trace)
[2025-02-28 10:40] LABS: Alanine Aminotransferase 30 U/L (0-31); Albumin Level 4.6 g/dL (3.5-5.0); Alkaline Phosphatase 70 U/L (39-117); Anion Gap 12 (12-20); Aspartate Amino Transferase 29 U/L (5-31); Bilirubin Direct 0.3 mg/dL (0.0-0.5); Bilirubin Total 0.8 mg/dL (0.0-1.0); Blood Urea Nitrogen 14 mg/dL (9-16); Calcium 9.5 mg/dL (8.4-10.2); Carbon Dioxide 23 mmol/L (22-29); Chloride 107 mmol/L (96-108); Creatinine Clr Calc Pharmacy 78.1; Estimated Glomerular Filt Rate > 60; Glucose Random 126 mg/dL (60-115); HCG Quantitative < 2 mIU/mL; Lipase 18 U/L (8-78); Magnesium 2.1 mg/dL (1.6-2.6); Potassium 4.1 mmol/L (3.3-5.1); Sodium 138 mmol/L (135-145); Troponin-I High Sensitivity < 2.7 ng/L (<3.5-17.0)
[2025-02-28 10:41] LABS: Band Neutrophils Percent 5 % (3-5); Basophils Abs Manual 0.3 X10*3/uL (0.0-0.2); Basophils Percent Manual 2 % (0-2); Lymphocytes Absolute Manual 0.2 X10*3/uL (1.2-4.9); Lymphocytes Percent Manual 1 % (20-40); Monocytes Absolute Manual 0.3 X10*3/uL (0.1-1.2); Monocytes Percent Manual 2 % (2-11); Neutrophils Absolute Manual 16.2 X10*3/uL (2.0-8.3); Neutrophils Percent Manual 90 % (45-73)
[2025-02-28 10:43] LABS: Platelet Estimate NORMAL (NORMAL); Platelet Morphology Comment NORMAL; RBC Morphology NORMAL; Toxic Vacuolation PRESENT
--- NOTE | 2025-02-28 10:45 | ED_ITS ---
HPI - Nausea/Vomiting/Diarrhea General Chief complaint: Nausea/Vomiting/Diarrhea Stated complaint: Food poisoning? Vomiting Time Seen by Provider: 02/28/25 09:52 Source: patient and RN notes reviewed Mode of arrival: ambulatory Limitations: no limitations History of Present Illness ED Provider: Roberta Agarwal PA-C HPI Narrative: This is a 49-year-old female, with a history of osteoarthritis, who presents emergency department with concerns for acute onset of abdominal pain, nausea, vomiting and diarrhea which started this morning. patient states that she believes this is attributed to food poisoning, states that she prepped salmon, Salad, and rice last night. She states that her 2 kids did not get sick. She denies any fevers, she does endorse chills. No chest pain or shortness for breath. She does report diffuse abdominal pain. No bloody or black stool. No hemoptysis. She does endorse marijuana use, no other drug or alcohol use. No other complaints or concerns at this time. MD elicited complaint: nausea, vomiting, diarrhea and abdominal pain Associated nausea: Yes Associated abdominal pain: Yes Location of pain: diffuse Radiation: diffuse Pain consistency: constant Severity: moderate Quality: cramping Exacerbating factors: none Relieving factors: none Context: possible food poisoning Associated symptoms: nausea/vomiting Related Data Previous Rx's ?Medication ?Instructions ?Recorded cyclobenzaprine 10 mg tablet 10 mg PO TID PRN muscle spasm #10 01/13/22 tabs ibuprofen 600 mg tablet 600 mg PO Q8H PRN pain #14 tabs 05/14/23 lidocaine 5 % topical patch 1 patch topical DAILY #15 ea 05/14/23 thumb spica splint #1 ea 07/29/23 morphine 15 mg immediate release 15 mg PO Q8H PRN pain #15 tabs 05/28/24 tablet gabapentin 100 mg capsule 200 mg (2 x 100 mg) PO TID #180 01/09/25 caps ondansetron 4 mg disintegrating 4 mg PO Q6H PRN nausea and 02/28/25 tablet vomiting #12 tabs Allergies Allergy/AdvReac Type Severity Reaction Status Date / Time No Known Allergies Allergy Verified 02/28/25 09:45 Review of Systems 2 Review of Systems: Constitutional: No Weight loss, No Fever, +Chills, No Night Sweats, No Fatigue, No Malaise ENT/Mouth: No Hearing loss, No Ear Pain, No Nasal Congestion, No Sinus Pain, No Hoarseness, No sore throat, No Rhinorrhea, No Swallowing Difficulty Eyes: No Eye Pain, No Swelling, No Redness, No Foreign Body, No Discharge, No Vision Changes Cardiovascular: No Chest Pain, No SOB, No Dyspnea on Exertion, No Orthopnea, No Edema, No Palpitations Respiratory: No Cough, No Sputum, No Wheezing, No Smoke Exposure, No Dyspnea Gastrointestinal: + Nausea, + Vomiting, + Diarrhea, No Constipation, + Abdominal pain, No Hematochezia, No Melena Genitourinary: No irregular bleeding, No Dysuria, No Urinary Frequency, No Hematuria, No Urinary Incontinence/retention, No Urgency, No Flank Pain, No Urinary Flow Changes, No Hesitancy Musculoskeletal: No joint pain, No Myalgias, No Joint Swelling Skin: No Skin Lesions, No rash Neuro: No Weakness, No Numbness, No Paresthesias, No Loss of Consciousness, No Dizziness, No Headache Psych: No Anxiety/Panic, No Depression, No SI/HI/AH/VH, No Social Issues, Heme/Lymph: No Bruising, No Bleeding,No Lymphadenopathy Endocrine: No Polyuria, No Polydipsia, No Temperature Intolerance Yes all other systems are reviewed and are negative Constitutional: Constitutional: Reports as per HPI Gastrointestinal: Gastrointestinal: Reports nausea PMFSH Past Medical History Medical History Arthritis Hair loss Hypovitaminosis D Migraines Surgical History Hx of breast reduction, elective History of section Family History Family History Father Stroke Mother Anxiety Family/Other FH: mental illness Other Family history of arthritis Family history of osteoporosis Social History Social History Alcohol intake: never Patient Tobacco Use Status: Never used Tobacco Substance Use Type: Marijuana Advance Directives: No Advance Directives Information Provided: Yes Current occupational status: employed 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, 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 Physical Exam 2 Vital Signs: Vital Signs: Last Vital Signs Temp 97.8 F 02/28/25 16:05 Pulse 96 02/28/25 16:05 Resp 18 02/28/25 16:05 BP 114/47 L 02/28/25 16:05 Pulse Ox 97 02/28/25 16:05 O2 Del Method Room Air 02/28/25 16:05 BMI result Body Mass Index 27.1 Const: General: cooperative, comfortable and no acute distress O rientation/consciousness: patient oriented x3 Limitations: no limitations HEENT: Head: Yes normal to inspection, Yes normocephalic and Yes atraumatic Ears: hearing grossly normal bilaterally General nose exam: Normal external nose present Face and sinus: Yes normal facial exam Mouth: Normal oral and palatal mucosa present, oropharynx normal and moist mucous membranes Throat: Yes posterior oropharynx normal Eyes: General: appearance normal, both eyes and all related structures E yelids: Yes eyelids normal Conjunctivae: conjunctivae normal Sclerae: s clerae normal Pupils: Equal, round and reactive pupils present EOM: EOMs intact bilaterally Neck: Neck: Yes normal visual inspection, Yes full ROM and Yes no lymphadenopathy Lymphatic: no lymphadenopathy noted Chest: Chest palpation & inspection: normal inspection of the chest Resp: Effort & Inspection: normal respiratory effort and able to speak in complete sentences Auscultation: clear to auscultation bilaterally, no crackles, no rales, no rhonchi and no wheezes Cardio: Rate: regular rate Rhythm: regular rhythm Heart sounds: S1 normal heart sound present and S2 normal heart sound present GI: Other: Abdomen is soft with diffuse tenderness throughout, without any specific point tenderness. Inspection: Yes normal to inspection Skin: General skin exam: no rashes or lesions noted Trauma: no lacerations or abrasions Wounds: no wounds Neuro: General: patient oriented x3 and moves all extremities Cranial nerves: Yes Equal, round and reactive pupils present Extrem: General: Yes normal to inspection Right upper extremity: normal to inspection Left upper extremity: normal to inspection Right lower extremity: normal to inspection Left lower extremity: normal to inspection Medications Administered Generic Name Dose Route Start Last Admin Trade Name Freq PRN Reason Stop Dose Admin Lactated Ringer's 1,000 mls @ 80 mls/hr 02/28/25 16:15 02/28/25 16:29 Lr IVCONT 80 mls/hr .[id number] ANNIE Administration Discontinued Medications Generic Name Dose Route Start Last Admin Trade Name Freq PRN Reason Stop Dose Admin Lactated Ringer's 1,000 mls @ 999 mls/hr 02/28/25 09:53 02/28/25 12:05 Lr IV 02/28/25 10:53 Infused .Q1H1M ONE Infusion Acetaminophen 1,000 mg in 100 mls @ 400 mls/hr 02/28/25 09:57 02/28/25 10:41 Ofirmev IV 02/28/25 10:11 Infused ONCE ONE Infusion Lactated Ringer's 500 mls @ 1,000 mls/hr 02/28/25 12:09 02/28/25 12:58 Lr IV 02/28/25 12:38 Infused .Q30M ONE Infusion Iohexol 100 ml 02/28/25 11:05 02/28/25 11:06 Iohexol 350 Mg/Ml 100 Ml Infus..Btl IV 02/28/25 11:06 85 ml ONCE ONE Administration Metoclopramide HCl 5 mg 02/28/25 16:20 02/28/25 16:30 Metoclopramide Hcl 10 Mg/2 Ml Vial SUBCUT 02/28/25 16:21 5 mg ONCE ONE Administration Ondansetron HCl 4 mg 02/28/25 09:57 02/28/25 10:13 Ondansetron Hcl 4 Mg/2 Ml Vial IVPUSH 02/28/25 09:58 4 mg ONCE ONE Administration Ondansetron HCl 4 mg 02/28/25 14:16 02/28/25 14:22 Ondansetron Hcl 4 Mg/2 Ml Vial IVPUSH 02/28/25 14:17 4 mg ONCE ONE Administration Medical Decision Making Medical Decision Making [facility] Narrative: This is a 49-year-old female who presents emergency department with complaints of acute onset of nausea, vomiting, diarrhea and abdominal pain which started this morning. On arrival, patient is alert and oriented x4, blood pressure 108/51, all other vital signs within normal limits. She is speaking full sentences under no acute distress. Abdomen is soft, with tenderness throughout. She has a history of a cholecystectomy and section. No bloody or black stool. Differential diagnoses include colitis, diverticulitis, diverticulosis, acute gastritis, gastroenteritis. Will obtain labs, UA, viral swabs, CT abdomen and pelvis and EKG. 12:15PM - labs returned, she does have leukocytosis at 17.1k Likely reactive, chemistry revealing no significant electrolyte derangement. Urine with high specific gravity, with trace protein, moderate blood, and rbc's. patient feeling much better after receiving IV fluids, antiemetics, and IV Tylenol. CT scan revealing concerning inflammatory bowel disease with regional ileus versus partial / intermittent mid small bowel obstruction. 12:50PM - discussed CT scan findings with Dr. Dao, who came and assessed patient, no surgical intervention indicated, symptoms likely due to possible food poisoning. Consult placed to Dr. Howard. 1:44PM - Discussed with Dr. Howard, acute symptoms unlikely to be from Crohn's as that is a chronic disease, recommending getting stool studies. 2:20PM - I re-evaluated patient, she is feeling much better, does have some slight return of her nausea. Given that patient is feeling well, nontoxic appearing, with normal vital signs, will give dose of Zofran and see if she is able to tolerate p.o.. We will continue to closely monitor pending p.o. challenge 03:39PM - Pt failed PO challenge, worsening abdominal cramping, having multiple episodes of diarrhea. Will attempt to admit to medicine Differential Diagnosis Differential Diagnoses: The differential diagnosis associated with the presentation includes See above Admission/Observation Consideration of admission/observation: Escalation of care including admission/observation considered Consult Healthcare Provider Management of the patient was discussed with: Claims Service Representative see course Lab Data [facility] Lab Attestation statement: I reviewed the patient's lab results. see MDM and course 02/28/25 10:02 02/28/25 10:02 Labs: Lab Results 02/28/25 02/28/25 Range/Units 10:02 10:19 WBC 17.1 H (4.8-10.8) X10*3/uL RBC 5.10 (4.20-5.50) X10*6/uL Hgb 15.4 (12.0-16.0) g/dl Hct 44.1 (37.0-47.0) % MCV 86.5 (80.0-98.0) fL MCH 30.2 (27.0-33.0) pg MCHC 34.9 (31.0-35.0) g/dl RDW 12.2 (11.0-16.0) % Plt Count 320 (160-400) X10*3/uL MPV 8.4 L (9.4-12.3) fL Immature Gran % (Auto) Cancelled Neut % (Auto) Cancelled Lymph % (Auto) Cancelled [place] % (Auto) Cancelled Eos % (Auto) Cancelled Baso % (Auto) Cancelled Lymph # (Auto) Cancelled [place] # (Auto) Cancelled Eos # (Auto) Cancelled Baso # (Auto) Cancelled Abs Immat Gran (auto) Cancelled Absolute Neuts (auto) Cancelled Absolute Nucleated RBC 0.000 (0.0-0.012) X10*3/uL Nucleated RBC % (auto) 0.0 (0.0-0.2) /100WBC Neutrophils % (Manual) 90 H (45-73) % Band Neutrophils % 5 (3-5) % Lymphocytes % (Manual) 1 L (20-40) % Monocytes % (Manual) 2 (2-11) % Basophils % (Manual) 2 (0-2) % Abs Neuts (Manual) 16.2 H (2.0-8.3) X10*3/uL Lymphocytes # (Manual) 0.2 L (1.2-4.9) X10*3/uL Monocytes # (Manual) 0.3 (0.1-1.2) X10*3/uL Basophils # (Manual) 0.3 H (0.0-0.2) X10*3/uL Toxic Vacuolation PRESENT Platelet Estimate NORMAL (NORMAL) Plt Morphology Comment NORMAL RBC Morphology NORMAL ESR 9 (0-20) MM/HR Sodium 138 (135-145) mmol/L Potassium 4.1 (3.3-5.1) mmol/L Chloride 107 (96-108) mmol/L Carbon Dioxide 23 (22-29) mmol/L Anion Gap 12 (12-20) BUN 14 (9-16) mg/dL Creatinine 0.73 (0.5-1.4) mg/dL Estim Creat Clear Calc 78.1 Estimated GFR > 60 Random Glucose 126 H (60-115) mg/dL Calcium 9.5 (8.4-10.2) mg/dL Magnesium 2.1 (1.6-2.6) mg/dL Total Bilirubin 0.8 (0.0-1.0) mg/dL Direct Bilirubin 0.3 (0.0-0.5) mg/dL AST 29 (5-31) U/L ALT 30 (0-31) U/L Alkaline Phosphatase 70 (39-117) U/L Troponin I High Sens < 2.7 (<3.5-17.0) ng/L C-Reactive Protein 0.19 (< or = 0.50) mg/dL Total Protein 8.0 (6.5-8.0) g/dL Albumin 4.6 (3.5-5.0) g/dL Lipase 18 (8-78) U/L Beta HCG, Quant < 2 mIU/mL Urine Color Yellow Urine Appearance Cloudy Urine pH 6.0 (5.0-9.0) Ur Specific [place] >= 1.030 H (1.005-1.025) Urine Protein 30 (1+) H (Neg-Trace) mg/dL Urine Glucose (UA) Negative (Negative) mg/dL Urine Ketones 15 (Negative) mg/dL Urine Blood Moderate (2+) H (Negative) Urine Nitrite Negative (Negative) Ur Leukocyte Esterase Negative (Negative) Urine RBC 3-5 H (0-2) /HPF Urine WBC 0-5 (0-5) /HPF Ur Squamous Epith Cells >20 (0-2) /HPF Other Crystals Present Urine Bacteria 1+ (None Seen) Hyaline Casts 0-2 (0-2) /LPF Influenza Type A (PCR) NEGATIVE (Negative) Influenza Type B (PCR) NEGATIVE (Negative) RSV RNA Qual (PCR) NEGATIVE (Negative) SARS-CoV-2 RNA (RT-PCR) NEGATIVE (Negative) Independent Interpretation I performed an independent interpretation of an: EKG Interpretation: EKG normal sinus rhythm at a ventricular rate of 87 beats per minute, CT interval 122, QT QTC 354/425, no ST elevation or depression. Radiology Impression Discussion of test interpretation with radiology: I have reviewed the radiologist's reading. Radiologist Impression: CT/CT abdomen pelvis w IV con IMPRESSION: Concerning inflammatory bowel disease in the correct clinical settings with regional ileus versus partial/intermittent mid small bowel obstruction. Leiomyomata uterine. Hepatomegaly, mild. Fleischner guidelines were followed. Critical Care Time Critical Care Time Critical Care Time: Yes Total Critical Care Time: 34 Attestation: I have personally provided critical care time exclusive of time spent on separately billable procedures. Time includes review of lab data, radiology results, discussion with consultants, and monitoring for potential decompensation. Intervention performed as documented. Discharge Plan Discharge Clinical Impression: Nausea vomiting and diarrhea Patient Disposition: Admitted As Inpatient Interventions: Admission Worksheet (ED) Last Done: 02/28/25 17:09 Discharge Date/Time: 02/28/25 18:11
[2025-02-28 10:52] LABS: Influenza A PCR NEGATIVE (Negative); Influenza B PCR NEGATIVE (Negative); Resp Syncy Virus RNA Qual PCR NEGATIVE (Negative); SARS COV2 PCR INHOUSE NEGATIVE (Negative)
[2025-02-28 10:56] LABS: Bacteria Urine 1+ (None Seen); Hyaline Casts Urine 0-2 /LPF (0-2); Other Crystals Urine Present; Squamous Epithelial Cell Urine >20 /HPF (0-2); WBC Urine 0-5 /HPF (0-5)
[2025-02-28] MEDS: iohexoL 350 MG/ML 100 ML INFUS..BTL IV (11:06)
--- OUTSIDE RECORDS SUMMARY | 2025-02-28 11:49 | XMS_ITS | Clinical Summary ---
Author Organization [facility] Address [address] [place] [address] Support Name Relationship Address Phone Erica Huang Mother [address] [place] [address] Care Team Providers Care Data Architect Manager Name Role Phone Chilo Castro BRAND AMBASSADOR Primary Care Provider [phone] Source Comments PLEASE NOTE, if this patient is a minor, it may be UNLAWFUL to discuss sensitive information that is contained in these records (such as FAMILY PLANNING, MENTAL HEALTH or SUBSTANCE ABUSE) with the minor patient's parent or other person without the patient's specific authorization.[facility] Allergies No known active allergies Medications Butalbital-Aceta minophen-Caff (FIORICET) 50-300-40 mg capIndications:m igraine Take by mouth. Indications: Migraine Active clonazePAM (KLONOPIN) 0.5 mg tabletIndication s:Routine general medical examination at a health care facility Take 0.5 mg by mouth 2 (two) times daily as needed for anxiety. Active omeprazole (PRILOSEC) 20 mg capsuleGiovani ns:Routine general medical examination at a health care facility Take 1 Cap by mouth every morning before breakfast. Do not crush or chew. 30 Cap 3 6 Active orphenadrine (NORFLEX ER) 100 mg 12 hr tabletIndication s:Chronic pain syndrome Take 1 Tab by mouth 2 (two) times daily Swallow whole. Do not crush or chew. 60 Tab 2 7 Active Active Problems Problem Noted Date Diagnosed Date Substance use disorder 07/21/2016 Overview (07/21/2016): Posit for cocaine and marijuana Migraine 07/19/2016 Depression 07/19/2016 Gastritis 07/19/2016 Chronic pain syndrome 07/19/2016 Social History Tobacco Use Types Packs/Day Years Used Date Smoking Tobacco: Never Smokeless Tobacco: Never Alcohol Use Standard Drinks/Week Comments Yes 0 (1 standard drink = 0.6 oz pur e alcohol) ocasionally Social Connections Answer Date Recorded Social Connections and Isolation 0 06/17/2019 Financial Resource Strain Answer Date R ecorded Financial Resource Strain 0 2018 Stress Answer Date Recorded Stress 0 06/17/2019 Physical Activity Answer Date Recorded Physical Activity 0 06/17/2019 Food Insecurity Answer Date Recorded Food 0 06/17/2019 Transportation Needs Answer Date Record ed Transportation 0 06/17/2019 Housing Stability Answer Date Recorded Housing 0 06/17/2019 Safety and Environment Answer Date José rded Safety 0 06/17/2019 Utilities Answer Date Recorded Utilities 0 06/17/2019 Employment Answer Date Recorded Employment 0 06/17/2019 Comments No Sex and Gender Information Value Date Recorded Sex Assigned at Female 11/03/2017 3:32 PM PST Legal Sex Female 9:13 AM PDT Gender Identity Female 11/03/2017 3:32 PM PST Sexual Orientation Straight 11/03/2017 3: 32 PM PST Last Filed Vital Signs Vital Sign Reading Time Taken Comments Blood Pressure 100/64 02/26/2019 10:33 AM EDT Pulse 80 02/26/2019 10:33 AM EDT Temperature 36.9 ??C (98.5 ??F) 02/26/2019 10:33 AM E DT Respiratory Rate 16 02/26/2019 10:33 AM EDT Oxygen Saturation 95% 01/21/2017 4:13 PM EDT Inhaled Oxygen Concentration - - Weight 60.6 kg (133 lb 8 oz) 02/26/2019 10:33 AM EDT Height 149.9 cm (4' 11.02 ) 02/26/2019 10:33 AM EDT Body Mass Index 26.95 02/26/2019 10:33 AM EDT Plan of Treatment Not on file Insurance [facility] Care Teams Data Architect Manager Relationship Specialty Start Date End Date Chilo Castro FNP [address] [place] [id number] PCP - General Family Medicine, [employer]IC[employer] 08/15/17
[2025-02-28 12:00] VITALS: BP 121/60; PULSE 93; RESP 16; TEMP 36.9; O2SAT 96
[2025-02-28 12:24] LABS: C Reactive Protein 0.19 mg/dL (< or = 0.50)
[2025-02-28] MEDS: Lactated Ringers 500 ML 1000 ML IV (12:28)
--- NOTE | 2025-02-28 12:52 | P.CONGS_ITS ---
History of Present Illness Consult details Consult date: 02/28/25 <FELIZ Baptiste Last Filed: 02/28/25 15:28> Narrative: Lance Acosta is a 49-year-old female with a history of osteoarthritis, polyarthralgia who presented to the ED with complaints of vomiting and diarrhea. She reports she awoke this morning and began vomiting. She had multiple episodes of nonbloody emesis and then 7-8 episodes of nonbloody diarrhea. She then developed mild diffuse abd pain following this. She denies fever, chills, melena, sick contacts, recent travel, new medication. She ate salmon and salad last night. Work up in the ED included CBC, BMP, LFTs significant for leukocytosis of 17.8. CT scan showed mildly dilated small bowel loops with mild wall thickening, concern was for ileus vs SBO and therefore general surgery was consulted. Hx of laparoscopic cholecystectomy and C section. <FELIZ Baptiste Last Filed: 02/28/25 15:28> Review of Systems 2 Constitutional: Constitutional: Denies chills and Denies fever(s) < FELIZ Baptiste Last Filed: 02/28/25 15:28> ENT: Denies dizziness <FELIZ Baptiste Last Filed: 02/28/25 15:28> Cardiovascular: Cardiovascular: Denies chest pain and Denies dyspnea < FELIZ Baptiste Last Filed: 02/28/25 15:28> Respiratory: Respiratory: Denies dyspnea <FELIZ Baptiste Last Filed: 02/28/25 15:28> Gastrointestinal: Gastrointestinal: Reports as per HPI <FELIZ Baptiste Last Filed: 02/28/25 15:28> Integumentary/Breasts: Skin/Breast: Denies rash and Denies jaundice < FELIZ Baptiste Last Filed: 02/28/25 15:28> Neurologic: Denies dizziness <FELIZ Baptiste Last Filed: 02/28/25 15:28> PMFSH Past Medical History Medical History: Medical History Arthritis Hair loss Hypovitaminosis D Migraines <FELIZ Baptiste Last Filed: 02/28/25 15:28> Family History Family History: Family History Father Stroke Mother Anxiety Family/Other FH: mental illness Other Family history of arthritis Family history of osteoporosis <FELIZ Baptiste Last Filed: 02/28/25 15:28> Surgical History Surgical History: Surgical History Hx of breast reduction, elective History of section <FELIZ Baptiste Last Filed: 02/28/25 15:28> Social History Social History: Social History Alcohol intake: never Substance Use Type: Marijuana Advance Directives: No Advance Directives Information Provided: Yes Current occupational status: employed 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, 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 <FELIZ Baptiste Last Filed: 02/28/25 15:28> Meds Allergies/Adverse reactions: Allergies Allergy/AdvReac Type Severity Reaction Status Date / Time No Known Allergies Allergy Verified 02/28/25 09:45 <FELIZ Baptiste Last Filed: 02/28/25 15:28> Physical Exam 2 Vital Signs: Vital Signs: Last Vital Signs Temp 98.4 F 02/28/25 12:00 Pulse 93 02/28/25 12:00 Resp 16 02/28/25 12:00 BP 121/60 02/28/25 12:00 Pulse Ox 96 02/28/25 12:00 O2 Del Method Room Air 02/28/25 12:00 BMI result Body Mass Index 27.1 <FELIZ Baptiste Last Filed: 02/28/25 15:28> Const: General: comfortable, no acute distress and alert <FELIZ Baptiste Last Filed: 02/28/25 15:28> Orientation/consciousness: patient oriented x3 <Stephanie Mantilla PA-C - Last Filed: 02/28/25 15:28> Resp: Effort & Inspection: normal respiratory effort <Stephanie Sandovaldeau FELIZ Chandra Last Filed: 02/28/25 15:28> GI: Inspection: No distended <Stephanie Sandovaldeau FELIZ Chandra Last Filed: 02/28/25 15:28> Palpation (GI): Soft to palpation, Tenderness to palpation present (GI) (mild upper abdominal tenderness) with no rebound tenderness, no guarding and not rigid <Stephanie Sandovaldeau FELIZ Chandra Last Filed: 02/28/25 15:28> Percussion: Yes normal to percussion <Stephanie Sandovaldeau FELIZ Chandra Filed: 02/28/25 15:28> Skin: General skin exam: no rashes or lesions noted <Stephanie Sandovaldeau FELIZ Chandra Filed: 02/28/25 15:28> Neuro: General: patient oriented x3 and moves all extremities <Stephanie Cortesbodeau FELIZ Chandra Last Filed: 02/28/25 15:28> Results Labs Result diagrams: 02/28/25 10:02 02/28/25 10:02 <Stephanie Cortesbodeau FELIZ Chandra Filed: 02/28/25 15:28> Labs: Abnormal lab results 02/28/25 02/28/25 Range/Units 10:02 10:19 WBC 17.1 H (4.8-10.8) X10*3/uL MPV 8.4 L (9.4-12.3) fL Neutrophils % (Manual) 90 H (45-73) % Lymphocytes % (Manual) 1 L (20-40) % Abs Neuts (Manual) 16.2 H (2.0-8.3) X10*3/uL Lymphocytes # (Manual) 0.2 L (1.2-4.9) X10*3/uL Basophils # (Manual) 0.3 H (0.0-0.2) X10*3/uL Random Glucose 126 H (60-115) mg/dL Ur Specific [place] >= 1.030 H (1.005-1.025) Urine Protein 30 (1+) H (Neg-Trace) mg/dL Urine Blood Moderate (2+) H (Negative) Urine RBC 3-5 H (0-2) /HPF Short CBC 02/28/25 Range/Units 10:02 WBC 17.1 H (4.8-10.8) X10*3/uL Hgb 15.4 (12.0-16.0) g/dl Hct 44.1 (37.0-47.0) % Plt Count 320 (160-400) X10*3/uL BMP 02/28/25 10:02 Sodium 138 Potassium 4.1 Chloride 107 Carbon Dioxide 23 BUN 14 Creatinine 0.73 Calcium 9.5 Liver Function 02/28/25 Range/Units 10:02 Total Bilirubin 0.8 (0.0-1.0) mg/dL Direct Bilirubin 0.3 (0.0-0.5) mg/dL AST 29 (5-31) U/L ALT 30 (0-31) U/L Alkaline Phosphatase 70 (39-117) U/L Albumin 4.6 (3.5-5.0) g/dL Urine 02/28/25 Range/Units 10:19 Urine Color Yellow Urine Appearance Cloudy Urine pH 6.0 (5.0-9.0) Ur Specific [place] >= 1.030 H (1.005-1.025) Urine Protein 30 (1+) H (Neg-Trace) mg/dL Urine Glucose (UA) Negative (Negative) mg/dL All other labs normal. <Stephanie Mantilla PA-C - Last Filed: 02/28/25 15:28> Imaging Abdomen CT scan report/results: report reviewed and image reviewed <FELIZ Baptiste Last Filed: 02/28/25 15:28> Assessment and Plan (1) Nausea vomiting and diarrhea: Status: Acute <Stephanie Mantilla PA-C - Last Filed: 02/28/25 15:28> 49 year old female with PMH of polyarthralgia, osteoarthritis who presented with acute onset of nonbloody vomiting/diarrhea and mild abd pain that began early this morning. CT scan showed mildly dilated small bowel loops with possible mild wall thickening. She clinically feels improved. Her abdomen is very benign with mild upper abd tenderness, no distention, peritoneal signs. She is clinically non toxic appearing. No evidence of obstruction or ileus, more suggestive of gastrotenteritis. No surgical intervention currently necessary. Can advance diet as tolerated. <Stephanie Mantilla PA-C - Last Filed: 02/28/25 15:28> 49 year old female with PMH of polyarthralgia, osteoarthritis who presented with acute onset of nonbloody vomiting/diarrhea and mild abd pain that began early this morning. CT scan showed mildly dilated small bowel loops with possible mild wall thickening. She clinically feels improved. Her abdomen is very benign with mild upper abd tenderness, no distention, peritoneal signs. She is clinically non toxic appearing. No evidence of obstruction or ileus, more suggestive of gastrotenteritis. No surgical intervention currently necessary. Can advance diet as tolerated. Patient seen and examined and agree with the above assessment and plan. CT reviewed with findings of small bowel wall thickening. No evidence of obstruction or pneumatosis. May be related to salmon or salad. No surgical intervention recommended. <Rashi Dao MD - Last Filed: 02/28/25 15:36> Procedures Date of Service Date of Service: 02/28/25 <Stephanie Mantilla PA-C - Last Filed: 02/28/25 15:28> 02/28/25 <Rashi Dao MD - Last Filed: 02/28/25 15:36>
[2025-02-28 12:55] LABS: Erythrocyte Sedimentation Rate 9 MM/HR (0-20)
[2025-02-28 14:00] VITALS: BP 119/60; PULSE 90; RESP 18; TEMP 36.8; O2SAT 95
--- NOTE | 2025-02-28 14:53 | PC.NURSE ---
pt tolerating ananda enmanuel and crackers with only subsequent nausea. no vomiting, or pain.
[2025-02-28 16:05] VITALS: BP 114/47; PULSE 96; RESP 18; TEMP 36.6; O2SAT 97
--- NOTE | 2025-02-28 16:10 | PM.IMHP ---
History of Present Illness Date of Service: 02/28/25 Chief Complaint: n/v/d 49F PMH osteoarthritis presented with nausea vomiting and diarrhea. Patient attributes symptoms to meal she had day prior to presentation of salad, rice, salmon. Other people had food and did not get sick. She started having nausea vomiting and diarrhea on day of presentation, diuresed watery nonbloody, vomiting his food contents, denies any fevers or chills. Is having diffuse abdominal pain. Denies previous symptoms. In ED found to have leukocytosis. CT abdomen read as regional ileus versus partial small-bowel obstruction this was reviewed by General surgery who felt this is more likely gastroenteritis. 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 [employer] Meds Allergies Allergy/AdvReac Type Severity Reaction Status Date / Time No Known Allergies Allergy Verified 02/28/25 09:45 Active Medications: Current Medications Acetaminophen (Acetaminophen 325 Mg Tablet) 650 mg PO Q6H PRN PRN Reason: Pain, Mild 1-3,fever,headache Calcium Carbonate (Calcium Carbonate 750 Mg Tab.Chew) 750 mg PO Q4H PRN PRN Reason: Heartburn Magnesium Hydroxide (Milk Of Magnesia 30 Ml Oral.Susp) 30 ml PO DAILY PRN PRN Reason: Constipation Melatonin (Melatonin 3 Mg Tablet) 6 mg PO BEDTIME PRN PRN Reason: Insomnia Sodium Chloride (0.9 % Sodium Chloride Flush 3 Ml Syringe) 3 ml IVFLUSH QSHIFT ANNIE Physical Exam Vital Signs and Narrative: Vital Signs: Last Vital Signs Temp 97.8 F 02/28/25 16:05 Pulse 96 02/28/25 16:05 Resp 18 02/28/25 16:05 BP 114/47 L 02/28/25 16:05 Pulse Ox 97 02/28/25 16:05 O2 Del Method Room Air 02/28/25 16:05 BMI result Body Mass Index 27.1 General: AO X 3, in discomfort Resp: CTA bilateral, no accessory muscles used CVS: S1,S2,RRR GI: soft, tender, non distended Neuro: motor grossly intact, alert Psych: appropriate affect, appropriate insight Results Labs 02/28/25 10:02 02/28/25 10:02 Labs: Laboratory Results - last 24 hr 02/28/25 02/28/25 10:02 10:19 MCV 86.5 MCH 30.2 MCHC 34.9 RDW 12.2 Plt Count 320 MPV 8.4 L Immature Gran % (Auto) Cancelled Neut % (Auto) Cancelled Lymph % (Auto) Cancelled [place] % (Auto) Cancelled Eos % (Auto) Cancelled Baso % (Auto) Cancelled Lymph # (Auto) Cancelled [place] # (Auto) Cancelled Eos # (Auto) Cancelled Baso # (Auto) Cancelled Abs Immat Gran (auto) Cancelled Absolute Neuts (auto) Cancelled Absolute Nucleated RBC 0.000 Nucleated RBC % (auto) 0.0 Neutrophils % (Manual) 90 H Band Neutrophils % 5 Lymphocytes % (Manual) 1 L Monocytes % (Manual) 2 Basophils % (Manual) 2 Abs Neuts (Manual) 16.2 H Lymphocytes # (Manual) 0.2 L Monocytes # (Manual) 0.3 Basophils # (Manual) 0.3 H Toxic Vacuolation PRESENT Platelet Estimate NORMAL Plt Morphology Comment NORMAL RBC Morphology NORMAL ESR 9 Anion Gap 12 Estim Creat Clear Calc 78.1 Estimated GFR > 60 Random Glucose 126 H Calcium 9.5 Magnesium 2.1 Total Bilirubin 0.8 Direct Bilirubin 0.3 AST 29 ALT 30 Alkaline Phosphatase 70 C-Reactive Protein 0.19 Total Protein 8.0 Albumin 4.6 Lipase 18 Beta HCG, Quant < 2 Urine Color Yellow Urine Appearance Cloudy Urine pH 6.0 Ur Specific [place] >= 1.030 H Urine Protein 30 (1+) H Urine Glucose (UA) Negative Urine Ketones 15 Urine Blood Moderate (2+) H Urine Nitrite Negative Ur Leukocyte Esterase Negative Urine RBC 3-5 H Urine WBC 0-5 Ur Squamous Epith Cells >20 Other Crystals Present Urine Bacteria 1+ Hyaline Casts 0-2 Influenza Type A (PCR) NEGATIVE Influenza Type B (PCR) NEGATIVE RSV RNA Qual (PCR) NEGATIVE SARS-CoV-2 RNA (RT-PCR) NEGATIVE Imaging Radiologist's Impressions: Impressions Abdomen/Pelvis CT 02/28/25 10:24 IMPRESSION: Concerning inflammatory bowel disease in the correct clinical settings with regional ileus versus partial/intermittent mid small bowel obstruction. Leiomyomata uterine. Hepatomegaly, mild. Fleischner guidelines were followed. Electronically signed by: Hawk Ross MD 02/28/2025 11:24 AM EDT RP Assessment and Plan (1) Nausea vomiting and diarrhea: Status: Acute Plan 49F PMH osteoarthritis presented with nausea vomiting and diarrhea Gastroenteritis IV fluids, antiemetics, clear liquid and advance as tolerated Follow-up stool panel and C diff PCR Osteoarthritis Continue gabapentin DVT prophylaxis with Lovenox Full Code Quality Stroke Does the patient have a stroke diagnosis?: No VTE Prior VTE?: No VTE Risk Level:: Medical - moderate - high VTE Device Contraindication: Treatment Not Indicated VTE Drug Contraindication: N/A - Med Ordered
--- NOTE | 2025-02-28 16:19 | PC.NURSE ---
pt continues to vomit. pt pending admission, MD Clark notified via [employer], awaiting new orders
[2025-02-28] MEDS: Lactated Ringers 1,000 ML 80 ML IVCONT (16:29)
[2025-02-28] MEDS: Metoclopramide HCl 10 MG/2 ML VIAL 5 MG SUBCUT (16:30)
[2025-02-28 18:30] VITALS: BMI 27.1
[2025-02-28 18:34] LABS: CDiff Gene PCR NEGATIVE (Negative)
--- NOTE | 2025-02-28 18:55 | PHA.MEDREC ---
Addendum entered by Enrique Varela [facility] 02/28/25 19:28: MED REC CHECKED BY [facility] Original Note: Pharmacy Consult ? Medication Reconciliation Pharmacy has completed the medication reconciliation. Spoke with patient and she stated she is taking Gabapentin 100mg 3 caps BID as needed for pain and stated she fills this at [facility] on [address] [facility], despite claims not finding recent claims for that med. I called [facility] on [address] [facility] and they confirmed she has not gotten Gababpentin filled with them since 12/2023 and stated they got a script on 01/22 with directions for Gabapentin 100mg tabs taking 2 tabs (200mg) TID but they state the pt never picked that up.
[2025-02-28 19:54] VITALS: BP 122/56; PULSE 96; RESP 20; TEMP 36.1; O2SAT 94
[2025-03-01 03:13] VITALS: BP 109/57; PULSE 85; RESP 18; TEMP 37.2; O2SAT 97
[2025-03-01] MEDS: Lactated Ringers 1,000 ML 80 ML IVCONT (04:02)
[2025-03-01 07:03] VITALS: BP 139/74; PULSE 91; RESP 16; TEMP 36.4; O2SAT 96
[2025-03-01 08:19] LABS: Hematocrit 38.3 % (37.0-47.0); Hemoglobin 13.1 g/dl (12.0-16.0); Mean Corpuscular HGB Conc 34.2 g/dl (31.0-35.0); Mean Corpuscular Hemoglobin 29.6 pg (27.0-33.0); Mean Corpuscular Volume 86.7 fL (80.0-98.0); Mean Platelet Volume 8.8 fL (9.4-12.3); Platelet Count 283 X10*3/uL (160-400); Red Blood Count 4.42 X10*6/uL (4.20-5.50); Red Cell Distribution Width 12.2 % (11.0-16.0); White Blood Count 6.6 X10*3/uL (4.8-10.8)
[2025-03-01 08:34] LABS: Anion Gap 11 (12-20); Blood Urea Nitrogen 6 mg/dL (9-16); Calcium 9.2 mg/dL (8.4-10.2); Carbon Dioxide 27 mmol/L (22-29); Chloride 105 mmol/L (96-108); Creatinine Clr Calc Pharmacy 86.4; Estimated Glomerular Filt Rate > 60; Glucose Random 98 mg/dL (60-115); Sodium 139 mmol/L (135-145)
--- NOTE | 2025-03-01 09:31 | P.DS_ITS ---
DS: Providers Provider Date of Service: 03/01/25 Date of admission: 02/28/25 16:02 Date of discharge: 03/01/25 Primary care physician: Suki Teresa MD DS: Diagnosis Discharge Diagnosis (1) Nausea vomiting and diarrhea: Status: Acute DS: Summary Hospital Course Hospital Course: from initial hpi: 49F PMH osteoarthritis presented with nausea vomiting and diarrhea. Patient attributes symptoms to meal she had day prior to presentation of salad, rice, salmon. Other people had food and did not get sick. She started having nausea vomiting and diarrhea on day of presentation, diuresed watery nonbloody, vomiting his food contents, denies any fevers or chills. Is having diffuse abdominal pain. Denies previous symptoms. In ED found to have leukocytosis. CT abdomen read as regional ileus versus partial small-bowel obstruction this wa s reviewed by General surgery who felt this is more likely gastroenteritis. hospital course: Patient was admitted for gastroenteritis due to norovirus. Was treated with IV fluids, antiemetics initially put on clear liquid diet but advanced solids and now tolerating. Nausea and vomiting and diarrhea have resolved. For osteoarthritis we will continue gabapentin as needed. Patient is feeling better will be discharged home. Time Attestation Discharge Coordination Time (in mins): 37 Quality: Safe Use of Opioids Does Pt have an Active Cancer Diagnosis on the Problem List?: No Quality: Stroke Does the patient have a stroke diagnosis?: No Physical Exam Vital Signs: Vital Signs: Last Vital Signs Temp 97.6 F 03/01/25 07:03 Pulse 91 03/01/25 07:03 Resp 16 03/01/25 07:03 BP 139/74 03/01/25 07:03 Pulse Ox 96 03/01/25 07:03 O2 Del Method Room Air 03/01/25 07:03 BMI result Body Mass Index 27.1 General: AO X 3, no acute distress Resp: CTA bilateral, no accessory muscles used CVS: S1,S2,RRR GI: soft, non tender, non distended Neuro: motor grossly intact, alert Psych: appropriate affect, appropriate insight DS: Data Data Completed and Pending Labs on day of discharge: Laboratory Results - last 24 hr 02/28/25 02/28/25 02/28/25 10:02 10:19 16:54 WBC 17.1 H RBC 5.10 Hgb 15.4 Hct 44.1 MCV 86.5 MCH 30.2 MCHC 34.9 RDW 12.2 Plt Count 320 MPV 8.4 L Immature Gran % (Auto) Cancelled Neut % (Auto) Cancelled Lymph % (Auto) Cancelled [place] % (Auto) Cancelled Eos % (Auto) Cancelled Baso % (Auto) Cancelled Lymph # (Auto) Cancelled [place] # (Auto) Cancelled Eos # (Auto) Cancelled Baso # (Auto) Cancelled Abs Immat Gran (auto) Cancelled Absolute Neuts (auto) Cancelled Absolute Nucleated RBC 0.000 Nucleated RBC % (auto) 0.0 Neutrophils % (Manual) 90 H Band Neutrophils % 5 Lymphocytes % (Manual) 1 L Monocytes % (Manual) 2 Basophils % (Manual) 2 Abs Neuts (Manual) 16.2 H Lymphocytes # (Manual) 0.2 L Monocytes # (Manual) 0.3 Basophils # (Manual) 0.3 H Toxic Vacuolation PRESENT Platelet Estimate NORMAL Plt Morphology Comment NORMAL RBC Morphology NORMAL ESR 9 Sodium 138 Potassium 4.1 Chloride 107 Carbon Dioxide 23 Anion Gap 12 BUN 14 Creatinine 0.73 Estim Creat Clear Calc 78.1 Estimated GFR > 60 Random Glucose 126 H Calcium 9.5 Magnesium 2.1 Total Bilirubin 0.8 Direct Bilirubin 0.3 AST 29 ALT 30 Alkaline Phosphatase 70 Troponin I High Sens < 2.7 C-Reactive Protein 0.19 Total Protein 8.0 Albumin 4.6 Lipase 18 Beta HCG, Quant < 2 Urine Color Yellow Urine Appearance Cloudy Urine pH 6.0 Ur Specific [place] >= 1.030 H Urine Protein 30 (1+) H Urine Glucose (UA) Negative Urine Ketones 15 Urine Blood Moderate (2+) H Urine Nitrite Negative Ur Leukocyte Esterase Negative Urine RBC 3-5 H Urine WBC 0-5 Ur Squamous Epith Cells >20 Other Crystals Present Urine Bacteria 1+ Hyaline Casts 0-2 C. difficile Tox B Gene NEGATIVE Influenza Type A (PCR) NEGATIVE Influenza Type B (PCR) NEGATIVE RSV RNA Qual (PCR) NEGATIVE SARS-CoV-2 RNA (RT-PCR) NEGATIVE 03/01/25 07:54 WBC 6.6 RBC 4.42 Hgb 13.1 Hct 38.3 MCV 86.7 MCH 29.6 MCHC 34.2 RDW 12.2 Plt Count 283 MPV 8.8 L Immature Gran % (Auto) Neut % (Auto) Lymph % (Auto) [place] % (Auto) Eos % (Auto) Baso % (Auto) Lymph # (Auto) [place] # (Auto) Eos # (Auto) Baso # (Auto) Abs Immat Gran (auto) Absolute Neuts (auto) Absolute Nucleated RBC 0.000 Nucleated RBC % (auto) 0.0 Neutrophils % (Manual) Band Neutrophils % Lymphocytes % (Manual) Monocytes % (Manual) Basophils % (Manual) Abs Neuts (Manual) Lymphocytes # (Manual) Monocytes # (Manual) Basophils # (Manual) Toxic Vacuolation Platelet Estimate Plt Morphology Comment RBC Morphology ESR Sodium 139 Potassium 4.0 Chloride 105 Carbon Dioxide 27 Anion Gap 11 L BUN 6 L Creatinine 0.66 Estim Creat Clear Calc 86.4 Estimated GFR > 60 Random Glucose 98 Calcium 9.2 Magnesium 2.0 Total Bilirubin Direct Bilirubin AST ALT Alkaline Phosphatase Troponin I High Sens C-Reactive Protein Total Protein Albumin Lipase Beta HCG, Quant Urine Color Urine Appearance Urine pH Ur Specific [place] Urine Protein Urine Glucose (UA) Urine Ketones Urine Blood Urine Nitrite Ur Leukocyte Esterase Urine RBC Urine WBC Ur Squamous Epith Cells Other Crystals Urine Bacteria Hyaline Casts C. difficile Tox B Gene Influenza Type A (PCR) Influenza Type B (PCR) RSV RNA Qual (PCR) SARS-CoV-2 RNA (RT-PCR) Discharge Plan Discharge Anticipated Discharge Date/Time: 03/01/25 09:30 Patient Disposition: Home, Self-Care Discharge Diagnosis: gastroenteritis Referrals: Suki Teresa MD [Primary Care Provider] - 1 Week Discharge Medications: New ondansetron 4 mg tablet,disintegrating 4 mg PO Q6H PRN (Reason: nausea and vomiting) Qty: 12 0RF Continued gabapentin 100 mg capsule 300 mg PO BID PRN (Reason: Pain) Rx Instructions: may cause drowsiness, no driving while taking this medication (DME) thumb spica splint See Rx Instructions .Route .MEDSUPPLY Qty: 1 0RF Rx Instructions: As directed Discharge Orders: Discharge Order (Routine); Ordered 03/01/25 Ordered By: Eric Clark Diet: Advance to usual diet Activity on Discharge: As tolerated Stand Alone Forms: Patient Portal Discharge page, Work/School Release Print Language: Citizen Of [place] Care Plan Goals: recovery Health Concerns: gastroenteritis Plan of Treatment: symptomatic management Assessment: see above Patient Instructions: Acute Nausea and Vomiting (ED), Acute Abdominal Pain (ED)
[2025-03-01] MEDS: Enoxaparin Sodium 40 MG/0.4 ML SYRINGE SUBCUT (09:33)
[2025-03-01 09:50] LABS: Adenovirus F 40/41 Not Detected (Not Detect.); Astrovirus Not Detected (Not Detect.); Campylobacter Not Detected (Not Detect.); Cryptosporidium Not Detected (Not Detect.); Cyclospora cayetanensis Not Detected (Not Detect.); E. coli EAEC Not Detected (Not Detect.); E. coli EPEC Not Detected (Not Detect.); E. coli ETEC Not Detected (Not Detect.); E. coli STEC Not Detected (Not Detect.); Entamoeba histolytica Not Detected (Not Detect.); Giardia lamblia Not Detected (Not Detect.); Norovirus GI/GII Detected (Not Detect.); Plesiomonas shigelloides Not Detected (Not Detect.); Rotavirus A Not Detected (Not Detect.); Salmonella Not Detected (Not Detect.); Sapovirus Not Detected (Not Detect.); Shigella sp./EIEC Not Detected (Not Detect.); Vibrio Not Detected (Not Detect.); Vibrio Cholerae Not Detected (Not Detect.); Yersinia enterocolitica Not Detected (Not Detect.)
--- NOTE | 2025-03-01 09:56 | MHC.CM.PN ---
pt dcd home self care prior to being seen by cm
--- OUTSIDE RECORDS SUMMARY | 2025-03-04 08:41 | XMS_ITS | Clinical Summary ---
Author Organization [facility] Address [address] [place] [address] Support Name Relationship Address Phone Erica Huang Mother [address] [place] [address] Care Team Providers Care Air Route Controller Name Role Phone Chilo Castro SPECIAL EFFECTS DESIGNER Primary Care Provider [phone] Source Comments PLEASE NOTE, if this patient [...] of Treatment Not on file Insurance [facility] Care Teams Air Route Controller Relationship Specialty Start Date End Date Chilo Castro FNP [address] [place] [id number] PCP - General Family Medicine, NEWS TECHNICAL DIRECTOR 08/15/17
== END 2025-03-01 12:03 | disposition home or self-care (01) | DRG 249 ==
LOC: HO.ED 15:33 → HO.S3 17:09 → HO.EDOVER 03-04 08:37
PROVIDERS: Physician Assistant Medical; Admitting Provider Internal Medicine; Emergency Provider Emergency Medicine Emergency Medical Services; PCP Internal Medicine; Visit Provider Internal Medicine
DX: K52.9 Noninfective gastroenteritis and colitis, unspecified (principal); A08.11 Acute gastroenteropathy due to Norwalk agent; M19.90 Unspecified osteoarthritis, unspecified site; Z03.818 Encounter for observation for suspected exposure to other biological agents ruled out; Z79.899 Other long term (current) drug therapy
CPT/HCPCS: 0241U; 36415; 74177; 80048; 80076; 81001; 83690; 83735; 84484; 84702; 85007; 85027; 85652; 86140; 87040; 87493; 87507; 93005; 96361; 96365; 96372; 96375; 96376; 99221; 99285; J0131; J1650; J2405; J2765; J7120; Q9967

== ENCOUNTER → 2025-02-28 09:52 | Outpatient (BNV) | payer OTHER, SELFPAY | PROVIDERS: Admitting Provider Internal Medicine; Emergency Provider Emergency Medicine Emergency Medical Services; PCP Internal Medicine; Visit Provider Internal Medicine | DX: R10.13 Epigastric pain (principal) | CPT/HCPCS: 93010 ==

== ENCOUNTER → 2025-02-28 09:58 | Outpatient (BNV) | payer OTHER, SELFPAY | PROVIDERS: Emergency Provider Emergency Medicine Emergency Medical Services; PCP Internal Medicine; Visit Provider Radiology Diagnostic Radiology | DX: D25.9 Leiomyoma of uterus, unspecified (principal) | CPT/HCPCS: 74177 ==

== ENCOUNTER → 2025-02-28 10:20 | Outpatient (BNV) | payer OTHER, SELFPAY | PROVIDERS: Emergency Provider Emergency Medicine Emergency Medical Services; PCP Internal Medicine; Visit Provider Physician Assistant Surgical | DX: R11.2 Nausea with vomiting, unspecified (principal); R19.7 Diarrhea, unspecified | CPT/HCPCS: 99222 ==

== ENCOUNTER → 2025-02-28 10:20 | Outpatient (BNV) | payer OTHER, SELFPAY | PROVIDERS: Emergency Provider Emergency Medicine Emergency Medical Services; PCP Internal Medicine; Visit Provider Internal Medicine | DX: R11.2 Nausea with vomiting, unspecified (principal); R19.7 Diarrhea, unspecified | CPT/HCPCS: 99223 ==

== ENCOUNTER 2025-08-09 09:06 | Outpatient (AMB) | payer OTHER, SELFPAY ==
--- NOTE | 2025-08-09 09:24 | MHC.OFFVIS ---
Vital Signs 08/09/25 09:30 Height 5 ft Weight 140 lb BMI 27.3 BP 116/62 Blood Pressure Location Rt brachial Position Sitting Respiration 16 Pulse 97 Pulse Source Pulse Oximeter Pulse Oximetry (%) 98 Oxygen Delivery Method Room Air Intake Visit Reasons: 6 Month Follow Up Accompanied by: Self / Same As Patient Allergies No Known Allergies Allergy (Verified 08/09/25 09:25) HPI Comments Details: The patient is a 49-year-old female presenting with left knee pain. The pain has been increasing despite no change in activity level, although she occasionally walks more and works more, which exacerbates the pain. She has not received any steroid injections for the knee, she has not recently attempted physical therapy for the knee. She does not currently use a brace for her knee, although she was previously provided with one that caused discomfort due to its metal components. Patient has been taking gabapentin twice daily with some relief. Pain returns when medication wears off. - Onset: Pain has been increasing over time. - Quality: Pain is exacerbated by increased walking and work activities. - Location: Left knee and sciatic nerve area. - Relieving factors: None specifically mentioned. - Affect: Pain impacts daily activities, especially with increased walking and work. - Analgesia: Currently taking gabapentin 300 mg twice daily. - Adverse Effects: No adverse effects reported from gabapentin. - Activities of Daily Living: Pain affects work and walking activities. - Aberrant Drug Related Behaviors: None reported. 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 Answers questions appropriately. Fully engaged in examination. Skin: warm, dry, intact HEENT: Normocephalic. Hearing intact. Cardiac: External chest normal in appearance. Respiratory: No cough, audible wheezing or stridor. Abdomen: without gross distension. MS: No obvious swelling or deformities. Able to transition from sit to stand unassisted. Ambulates with bilaterally normal heel strike and toe off Neurological: Oriented to person, place, time and situation. Thought process intact. No gait abnormalities appreciated. Psychiatric: Appropriate mood and affect. Good judgment and insight. Vital Signs: Last Vital Signs Pulse 97 08/09/25 09:30 Resp 16 08/09/25 09:30 BP 116/62 08/09/25 09:30 Pulse Ox 98 08/09/25 09:30 Oxygen Delivery Method Room Air 08/09/25 09:30 BMI result Body Mass Index 27.3 Results Reviewed Results Reviewed: 07/15/23 XR/XR knee FINDINGS: Left knee: The bone and joints appear normal. Surrounding soft tissues normal. Cannot assess for joint effusion on these limited views Right knee limited AP upright: The visualized bone and soft tissues are normal. Cannot assess patellofemoral joint and cannot assess for joint effusion IMPRESSION: LEFT KNEE Limited: Normal. RIGHT KNEE limited: Normal Assessment & Plan Assessment & Plan (1) Patellofemoral syndrome, left: Code(s): M22.2X2 - Patellofemoral disorders, left knee Category: Medical (2) Knee pain, left: Code(s): M25.562 - Pain in left knee Category: Medical Plan The plan includes repeating an x-ray of the left knee to assess any changes or underlying issues. Physical therapy will be initiated for the left knee to improve function and reduce pain. If physical therapy does not yield sufficient improvement, a steroid injection will be considered. The patient's gabapentin dosage will be increased to 300 mg three times daily to better manage the pain. The patient is advised to use a compression brace for additional support during activities, which may help alleviate discomfort. Patient was informed and verbally consented to the use of an ambient scribe for clinic note documentation during this visit. Orders: Orders XR knee LT 3V Today M22.2X2 - Patellofemoral disorders, left knee, M25.562 - Pain in left knee PT Evaluation and Treatment Today M22.2X2 - Patellofemoral disorders, left knee, M25.562 - Pain in left knee Medications: New gabapentin 300 mg PO TID 90 caps 6RF Patient Instructions: - Schedule an x-ray for the left knee as soon as possible. - Begin physical therapy for the left knee and follow the therapist's recommendations. - Increase gabapentin to 300 mg three times daily as discussed. - Use a compression brace during activities to support the knee. - Contact the physical therapy office if they do not reach out within a week to schedule an appointment. Coding Level of Care Code Est Pt Level 3 (22315) Complex EM visit Add On G2211 Diagnoses Patellofemoral syndrome, left M22.2X2 Knee pain, left M25.562
[2025-08-09 09:30] VITALS: BP 116/62; PULSE 97; RESP 16; O2SAT 98; BMI 27.3
--- OUTSIDE RECORDS SUMMARY | 2025-08-09 09:51 | XMS_ITS | Clinical Summary ---
Author Organization [facility] Address [address] [place] [address] Support Name Relationship Address Phone Erica Huang Mother [address] [place] [address] Care Team Providers Care Manager Stars Name Role Phone Chilo Castro [employer] Primary Care Provider [phone] Source Comments PLEASE NOTE, if this patient [...] 80 02/26/2019 10:33 AM EDT Temperature 36.9 C (98.5 F) 02/26/2019 10:33 AM EDT Respiratory Rate 16 02/26/2019 10:33 AM EDT Oxygen Saturation 95% 01/21/2017 4:13 PM EDT Inhaled Oxygen Concentration - - Weight 60.6 kg (133 lb 8 oz) 02/26/2019 10:33 AM EDT Height 149.9 cm (4' 11.02 ) 02/26/2019 10:33 AM EDT Body Mass Index 26.95 02/26/2019 10:33 AM EDT Plan of Treatment Not on file Insurance [facility] Care Teams Manager Stars Relationship Specialty Start Date End Date Chilo Castro FNP [address] [place] [address] PCP - General Family Medicine, [employer] 08/15/17
== END 2025-08-09 09:39 | disposition home or self-care (01) ==
LOC: HO.PMC 09:07
PROVIDERS: PCP Internal Medicine; Visit Provider Registered Nurse Emergency
DX: M22.2X2 Patellofemoral disorders, left knee (principal); M25.562 Pain in left knee
CPT/HCPCS: 99213; G2211